=== PATIENT | female | born 2000 | race Caucasian/White ===

== ENCOUNTER 2020-12-10 20:53 | Emergency (ER) | payer OTHER, SELFPAY ==
--- NOTE | ~2020-12-10 | XR_ITS ---
EXAMINATION: XR knee LT 2V DATE: 12/10/2020 21:55 INDICATION: Generalized left knee pain post fall TECHNIQUE: AP and lateral views of the left knee were obtained. COMPARISON: None. FINDINGS: Alignment is normal. No fracture. Joint spaces appear normal. No left knee joint effusion. Soft tissu es are unremarkable. No radiopaque foreign bodies identified. IMPRESSION: Negative left knee radiographs. Reviewed, dictated and finalized at location A.
--- NOTE | ~2020-12-10 | XR_ITS ---
EXAMINATION: XR ankle RT 2V DATE: 12/10/2020 21:55 INDICATION: Lateral malleolar pain and swelling post fall TECHNIQUE: Anteroposterior and lateral views of the right ankle were obtained. COMPARISON: None. FINDINGS: Alignment is normal. No fracture. Joint spaces are normal. Small plantar calcaneal spur. Soft tissue swelling about the lateral malleolus. IMPRESSION: 1. No osseous abnormality. Reviewed, dictated and finalized at location A. IMPRESSION: 1. No osseous abnormality.
[2020-12-10 21:31] VITALS: BP 119/59; PULSE 93; RESP 14; TEMP 36.8; O2SAT 100
[2020-12-10 23:54] VITALS: BP 112/61; PULSE 87; RESP 17; O2SAT 100
[2020-12-10 23:57] VITALS: BP 112/61; PULSE 87; RESP 18; O2SAT 100
--- NOTE | 2020-12-11 00:20 | ED.FALL ---
HPI - Fall General Chief Complaint: Fall Stated Complaint: fall, knee and ankle pain Time Seen by Provider: 12/11/20 00:12 Source: patient Mode of arrival: ambulatory Limitations: no limitations History of Present Illness HPI Narrative: Patient is 25 weeks , 1, para 0, 0 tripped and fell while walking, went down to her knees then hit her abdomen on the floor. No loss of consciousness, complaining of left knee, right ankle and abdominal pain. Patient denies any vaginal bleeding at this time. Related Data Allergies Allergy/AdvReac Type Severity Reaction Status Date / Time No Known Allergies Allergy Verified 12/11/20 00:16 Review of Systems Review of Systems: CONSTITUTIONAL: Denies fever, chills, or sweats. EYES: Denies visual changes, redness, or discharge. ENT: Denies rhinorrhea, congestion, sore throat, or otalgia. CARDIOVASCULAR: Denies chest pain, palpitations, or edema. RESPIRATORY: Denies cough or dyspnea. GASTROINTESTINAL: Denies abdominal pain, nausea, vomiting, or diarrhea. GENITOURINARY: Denies dysuria or hematuria. SKIN: Denies rash or itching. MUSCULOSKELETAL: Denies back pain, joint pain, or myalgia. NEUROLOGIC: Denies headache, numbness, or weakness. PSYCHIATRIC: Denies anxiety or depression. Exam Narrative: General appearance: Well-developed, well-nourished Skin: Normal color Head: Normocephalic, nontraumatic Eyes: Clear conjunctiva ENT: Oropharynx normal, ears normal, nose normal Neck: Supple, nontender Chest and respiratory: Airway patent, no respiratory distress, no accessory muscle use Heart: Regular rate/rhythm Abdomen: Soft, nontender, no organomegaly, quiet bowel sounds Vascular: Normal peripheral pulses, normal capillary refill. Musculoskeletal: Left knee showed abrasion and bruises anteriorly, slight limited range of motion. Right ankle showed lateral bruises and swelling, no deformity Neurologic: Alert and oriented ?3, SENIOR QUALITY ASSURANCE ENGINEER is normal as tested, no gross motor deficit Course Course Emergency Course: Stable Vital Signs Vital signs: Vital Signs Temperature 36.8 C 12/10/20 21:31 Pulse Rate 93 12/10/20 21:31 Respiratory Rate 14 12/10/20 21:31 Blood Pressure 119/59 L 12/10/20 21:31 Pulse Oximetry 100 09/22/21 21:31 Temperature 36.8 C 12/10/20 21:31 Pulse Rate 80 12/11/20 01:09 Respiratory Rate 15 12/11/20 01:09 Blood Pressure 112/63 12/11/20 01:09 Pulse Oximetry 100 12/11/20 01:09 MDM - Fall MDM Narrative Medical decision making narrative: Today. Patient also patient had a fall, with blunt abdominal trauma, DI[employer]CTION[employer] SUR[employer]Y DRAF[employer] monitoring is recommended. X-ray of the left knee and right ankle showed no acute abnormality. heart tone within normal limits. Imaging Data Radiologist's impression: Impressions Ankle X-Ray 12/10/20 22:09 IMPRESSION: 1. No osseous abnormality. Knee X-Ray 12/10/20 22:10 IMPRESSION: Negative left knee radiographs. Critical Care Time Critical Care Time Critical Care Time: Yes Total Critical Care Time: 30 Discharge Plan Discharge Clinical Impression: Blunt trauma to abdomen Qualifiers: Encounter type: initial encounter Qualified Code(s): S39.91XA - Unspecified injury of abdomen, initial encounter Qualifiers: Weeks of gestation: 25 weeks Qualified Code(s): Z3A.25 - 25 weeks gestation of Patient Disposition: Still a Patient Condition: Stable Instructions: Blunt Abdominal Injury (ED), at 23 to 26 Weeks (ED) Additional Instructions: Patient is clear from our point of view after ED evaluation. Patient need to go to DIRECTIONAL SURVEY DRAFTER for monitoring. Follow-up/Referrals: [place]
[2020-12-11 01:09] VITALS: BP 112/63; PULSE 80; RESP 15; O2SAT 100
== END 2020-12-11 01:46 | disposition home or self-care (01) ==
PROVIDERS: Emergency Provider Emergency Medicine
DX: O9A.212 Injury, poisoning and certain other consequences of external causes complicating pregnancy, second trimester (principal); S39.91XA Unspecified injury of abdomen, initial encounter; S80.02XA Contusion of left knee, initial encounter; S90.01XA Contusion of right ankle, initial encounter; Z3A.25 25 weeks gestation of pregnancy; W01.0XXA Fall on same level from slipping, tripping and stumbling without subsequent striking against object, initial encounter
CPT/HCPCS: 73560; 73600; 99284

== ENCOUNTER 2020-12-11 01:45 | Observation (INO) | payer OTHER, SELFPAY ==
[2020-12-11 03:07] VITALS: BMI 39.4
--- NOTE | 2020-12-11 03:08 | OBADM ---
This patient, Sunita Fan, admitted to the OB room OB Post 116 for observation. Patient/family oriented to hospital policies and general routines including ID bracelet, bed and alarms, visiting hours, pain management, procedures, bathroom and other care routines, personal items, smoking policy, room service/diet, and visiting hours. Patient/Family are encouraged to report perceived risks to care and to ask questions if they do not understand what they are told or what they should do.
--- NOTE | 2020-12-14 04:30 | PM.OBTRLD ---
OB - Triage/Final Diagnosis Visit Information Comments/Additional reasons for admission: I have assessed the risk for this patient, Sunita Fan, and determined that she would benefit from observation care. Final Diagnosis (1) Abdominal pain affecting : Code(s): O26.899 - Other specified related conditions, unspecified trimester; R10.9 - Unspecified abdominal pain Status: Acute
== END 2020-12-11 02:58 | disposition home or self-care (01) ==
PROVIDERS: Admitting Provider Obstetrics & Gynecology; Visit Provider Obstetrics & Gynecology
DX: O26.892 Other specified pregnancy related conditions, second trimester (principal); R10.9 Unspecified abdominal pain; Z3A.25 25 weeks gestation of pregnancy
CPT/HCPCS: G0378; G0379

== ENCOUNTER 2021-01-16 10:20 | Emergency (ER) | payer OTHER, SELFPAY ==
[2021-01-16 10:28] VITALS: BP 135/74; PULSE 107; RESP 20; TEMP 36.9; O2SAT 100
--- NOTE | 2021-01-16 12:23 | PC.NURSE ---
Pt states she betancur been experiencing sore throat early this morning and it hurts to swallow, pt states has had swollen tonsils since April but she is and has to wait on intervention 10/28 pain
[2021-01-16 13:56] LABS: Monoscreen Negative (Negative); Negative Monotest Control Negative (Negative); Positive Monotest Control Positive (Positive)
--- NOTE | 2021-01-16 14:02 | ED.URI ---
HPI - URI/Sore Throat General Chief Complaint: Upper Respiratory Infection Stated Complaint: sore throat, swollen throat Time Seen by Provider: 01/16/21 12:13 Source: patient and family Mode of arrival: ambulatory Limitations: no limitations History of Present Illness HPI Narrative: 20-year-old female Patient states she has been having sore throats frequently since April However she says she was encouraged to delay evaluation because she was She now has a 1 day history of sore throat and discomfort with swallowing She does not have a fever, she does not have a cough, she does not have a exudate that she knows of, and she does not have any swelling or stiffness in her neck Related Data Allergies Allergy/AdvReac Type Severity Reaction Status Date / Time No Known Allergies Allergy Verified 01/16/21 10:32 Review of Systems Review of Systems: All systems reviewed & are unremarkable except as noted in HPI and below Constitutional: Constitutional: Reports no additional constitutional complaints, Denies chills, Denies fever(s) and Denies headache(s) Eyes: Eyes: Reports no additional eye complaints and Denies change in vision ENT: Reports dysphagia, Denies headache(s), Denies nasal congestion and Reports sore throat Cardiovascular: Cardiovascular: Denies chest pain and Denies dyspnea Respiratory: Respiratory: Denies cough and Denies dyspnea Gastrointestinal: Gastrointestinal: Denies nausea and Denies vomiting Genitourinary: Genitourinary: Denies urinary frequency Musculoskeletal: Musculoskeletal: Denies myalgias, Denies deformity and Denies numbness Integumentary/Breasts: Skin/Breast: Denies rash and Denies wounds Neurologic: Denies headache(s), Denies focal weakness and Denies numbness Psychiatric: Psychiatric: Reports no additional psychiatric complaints Endocrine: Endocrine: Reports no additional endocrine complaints Hematologic/Lymphatic: Hematologic/Lymphatic: Reports no additional hematologic/lymphatic complaints Allergic/Immunologic: Allergic/Immunologic: Reports no additional allergic/immunologic complaints Exam Const: General: cooperative and no acute distress Orientation/consciousness: patient oriented x3 (alert) HENMT: Head: normal to inspection, normocephalic and atraumatic Ears: external ears normal General nose exam: no epistaxis Other: Tonsils are slightly enlarged, not really erythematous, no exudate, and no shift or signs of peritonsillar abscess There is a little erythema of the tip of the uvula No cervical adenopathy Eyes: Conjunctivae: conjunctivae normal EOM: EOMs intact bilaterally Neck: Neck: normal visual inspection, no lymphadenopathy, supple and no JVD Resp: Effort & Inspection: normal respiratory effort Auscultation: clear to auscultation bilaterally, no rales, no rhonchi, no wheezes and other (BS =) Skin: General skin exam: normal color and no rashes or lesions noted Rashes: no rashes Neuro: General: patient oriented x3 (alert) and moves all extremities Speech: normal speech Psych: Affect: normal affect Course Course Emergency Course: Discussed results and plan with patient, that she likely has viral pharyngitis and may not be a candidate for tonsillectomy but could certainly discuss that with ENT Vital Signs Vital signs: Vital Signs Temperature 36.9 C 01/16/21 10:28 Pulse Rate 107 H 01/16/21 10:28 Respiratory Rate 20 01/16/21 10:28 Blood Pressure 135/74 01/16/21 10:28 Pulse Oximetry 100 01/16/21 10:28 Temperature 36.9 C 01/16/21 10:28 Pulse Rate 107 H 01/16/21 10:28 Respiratory Rate 20 01/16/21 10:28 Blood Pressure 135/74 01/16/21 10:28 Pulse Oximetry 100 01/16/21 10:28 MDM - URI/Sore Throat Lab Data Labs: Lab Results 01/16/21 Range/Units 12:23 Monoscreen Negative (Negative) Strep Screen Presumptive Negative *(Reference Range: Negative)*
[2021-01-16 14:28] VITALS: BP 135/86; PULSE 85; RESP 18; TEMP 36.8; O2SAT 99
== END 2021-01-16 14:29 | disposition home or self-care (01) ==
PROVIDERS: Emergency Provider Emergency Medicine
DX: J02.9 Acute pharyngitis, unspecified (principal)
CPT/HCPCS: 36415; 86308; 87081; 87880; 99283

== ENCOUNTER 2021-03-08 23:48 | Observation (INO) | payer OTHER, SELFPAY ==
--- NOTE | 2021-03-08 23:48 | OBADM ---
This patient, Sunita Fan, admitted to the OB room Labor/Delivery/Recovery 105 for observation. Patient/family oriented to hospital policies and general routines including ID bracelet, bed and alarms, visiting hours, pain management, procedures, bathroom and other care routines, personal items, smoking policy, room service/diet, and visiting hours. Patient/Family are encouraged to report perceived risks to care and to ask questions if they do not understand what they are told or what they should do.
[2021-03-09 00:11] VITALS: RESP 18; TEMP 36.9
[2021-03-09 00:12] VITALS: BP 103/41; PULSE 91
[2021-03-09 01:28] VITALS: BMI 49.6
--- NOTE | 2021-03-11 11:55 | PM.OBTRLD ---
OB - Triage/Final Diagnosis Visit Information Reason for evaluation: threatened labor Comments/Additional reasons for admission: I have assessed the risk for this patient, Sunita Fan, and determined that she would benefit from observation care.
== END 2021-03-09 01:35 | disposition home or self-care (01) ==
PROVIDERS: Admitting Provider Obstetrics & Gynecology; Visit Provider Obstetrics & Gynecology
DX: O47.1 False labor at or after 37 completed weeks of gestation (principal); Z3A.38 38 weeks gestation of pregnancy
CPT/HCPCS: G0378; G0379

== ENCOUNTER 2021-03-11 12:10 | Outpatient (RCR) | payer OTHER, SELFPAY ==
[2021-02-03 12:20] VITALS: BP 112/49; PULSE 99
[2021-02-11 12:48] VITALS: BP 123/67
[2021-02-17 12:58] VITALS: BP 104/46; PULSE 114
[2021-02-26 12:25] VITALS: BP 121/65; PULSE 116
[2021-03-03 13:48] VITALS: BP 110/63; PULSE 951
[2021-03-04 17:29] VITALS: BP 106/48; PULSE 90
--- NOTE | ~2021-03-11 | US_ITS ---
EXAMINATION: US OB BPP wo non-stress DATE: 03/03/2021 13:11 INDICATION: cardiac decelerations on in office exam during third trimester of . TECHNIQUE: Real-time pelvic ultrasound was performed. The interpreting radiologist was not present fo r the study. COMPARISON: None. FINDINGS: There is a single living fetus in vertex presentation. The placenta is posterior. heart rate i s 150 beats per minute (bpm). Biophysical profile performed by the technologist: breathing (30 sec sustained breathing in 30 minutes): 2 out of 2 movement (3 gross body movements in 30 minutes): 2 out of 2 tone (one episode of yvcowfs-aolihtkgl-amlgicr limb movement): 2 out of 2 Amniotic fluid pocket (2 cm): 2 out of 2 Total score: 8 out of 8 IMPRESSION: 1. Single living fetus in vertex presentation with heart rate of 150 bpm. 2. Biophysical profile 8 out of 8. Reviewed, dictated and finalized at location A. T WRAPPER
[2021-03-11 12:36] VITALS: BP 123/70; PULSE 98
== END 2021-04-02 09:50 | disposition home or self-care (01) ==
LOC: ANHOBOP 12:10
PROVIDERS: Visit Provider Obstetrics & Gynecology
DX: O26.03 Excessive weight gain in pregnancy, third trimester (principal); O36.63X0 Maternal care for excessive fetal growth, third trimester, not applicable or unspecified; Z3A.32 32 weeks gestation of pregnancy; Z3A.34 34 weeks gestation of pregnancy; Z3A.36 36 weeks gestation of pregnancy; Z3A.37 37 weeks gestation of pregnancy; Z3A.38 38 weeks gestation of pregnancy
CPT/HCPCS: 59025; 76819

== ENCOUNTER 2021-03-15 15:59 | Inpatient (IN) | payer OTHER, SELFPAY ==
[2021-03-15] VITALS (15 sets, daily range): BP systolic 86–122; BP diastolic 46–71; PULSE 73–99; TEMP 36.6; BMI 49.6
--- NOTE | 2021-03-15 16:25 | LDADM ---
This patient, Sunita Fan, was admitted to Labor/Delivery/Recovery 103 on 03/15/21 at 15:59. Plans for labor, pain management and were discussed with patient. Patient/family oriented to hospital policies and general routines including ID bracelet, bed and alarms, visiting hours, pain management, procedures, bathroom and other care routines, personal items, smoking policy, room service/diet and guest tray routines, security routines, and visiting hours. Patient/Family are encouraged to report perceived risks to care and to ask questions if they do not understand what they are told or what they should do. See OBIX for further documentation.
[2021-03-15 16:54] LABS: Basophils Percent Auto 0.2 % (0.2-1.2); Eosinophils Absolute Auto 0.1 K/mm3 (0-0.3); Eosinophils Percent Auto 0.7 % (0-4.4); Hematocrit 31.2 % (37.0-47.0); Hemoglobin 10.7 g/dL (12.0-15.0); Immature Granulocyte Absolute 0.05 K/mm3 (0.00-0.031); Immature Granulocyte Percent A 0.5 % (0-0.5); Lymphocytes Absolute Auto 1.38 K/mm3 (0.9-3.2); Lymphocytes Percent Auto 14.1 % (18.3-44.2); Mean Corpuscular HGB Conc 34.3 g/dl (32-36); Mean Corpuscular Hemoglobin 29.2 pg (26-34); Mean Platelet Volume 9.5 fl (7.4-10.4); Monocytes Absolute Auto 0.8 K/mm3 (0.1-0.6); Monocytes Percent Auto 8.2 % (2.6-8.5); Neutrophils Absolute Auto 7.5 K/mm3 (1.3-6.7); Neutrophils Percent Auto 76.3 % (45.5-73.1); Platelet Count Result 248 k/mm3 (150-375); Red Blood Count 3.67 M/mm3 (4.2-5.4); Red Cell Distribution Width 13.7 % (11.5-14.5); White Blood Count 9.8 K/mm3 (4.5-10.0)
[2021-03-15] MEDS: DINOPROSTONE 10 MG VAG INSERT VAGINAL (17:11)
--- NOTE | 2021-03-15 17:18 | PM.IMHP ---
H&P: HPI History of Present Illness Date/Time: 03/15/21 17:18 Sunita is a 21yo @ 39.0wks (ANDIE [birth year]) who presents for elective induction of labor. She reports good movement. She has been having irregular contractions. No VB or LOF. She has had regular care and underwent testing. Her is complicated by: - Morbid obesity - Rh negative s/p rhogam - Mild anemia on iron - Varaicella, CMV, & parvo non-immune Chief Complaint: induction of labor Review of Systems Review of Systems: All systems reviewed & are unremarkable except as noted in HPI and below (HPI) [facility] Family History Family History Sibling Mental disability Grandparent Metastatic adenocarcinoma Grandparent Heart disease Mother Cervical cancer Social History Social History Smoking status: Never smoker Substance use: never Spiritual care concerns: No Meds Home Medications and Allergies Home Medications Medication Instructions Recorded Confirmed Type PNV cmb#95-ferrous fumarate-FA 1 tablet PO DAILY 02/26/21 03/15/21 History [] Allergies Allergy/AdvReac Type Severity Reaction Status Date / Time No Known Allergies Allergy Verified 01/16/21 10:32 Vital Signs Vital Signs - 24 hr 03/15/21 16:31 03/15/21 16:46 03/15/21 17:01 Pulse Rate 97 91 92 Blood Pressure 118/69 119/59 L 111/59 L 03/15/21 17:16 Pulse Rate 91 Blood Pressure 107/62 Exam Const: General: cooperative, comfortable and no acute distress Nutritional Appearance: obese Resp: Effort & Inspection: normal respiratory effort Cardio: Rate: regular rate GI: Inspection: normal to inspection and non-distended GI Palp: No abdominal tenderness and Yes Soft to palpation : Other: FHT's: 130's/ mod soo/ + accels/ no decels - cat 1 TOCO: irregular ctx's Cervix: 2/50/-2, anterior & soft Membranes: intact Presentation: cephalic Skin: General skin exam: normal color Neuro: General: patient oriented x3 Extrem: General: normal to inspection Psych: Appearance: grossly normal Affect: normal affect Attitude: cooperative H&P: Results Labs Labs: Short CBC 03/15/21 Range/Units 16:45 WBC 9.8 (4.5-10.0) K/mm3 Hgb 10.7 L (12.0-15.0) g/dL Hct 31.2 L (37.0-47.0) % Plt Count 248 (150-375) k/mm3 Assessment and Plan Assessment and plan (1) : Qualifiers: Weeks of gestation: 39 weeks Qualified Code(s): Z3A.39 - 39 weeks gestation of Code(s): Z34.90 - Encounter for supervision of normal , unspecified, unspecified trimester Status: Acute (2) Encounter for elective induction of labor: Code(s): Z34.90 - Encounter for supervision of normal , unspecified, unspecified trimester Status: Acute Additional Plan - Admitted for IOL overnight - Cervidil per protocol - Continuous monitoring; currently reassuring - Anesthesia consult PRN pain - GBS negative
--- NOTE | 2021-03-15 17:29 | WPDHPUPDATE1 ---
History and Physical Update Update Date/Time: 03/15/21 17:29 History and Physical has been reviewed, including an updated exam of the patient. There are NO changes in the patient's condition. Risks, benefits, and alternatives have been discussed and questions answered. Patient agrees to proceed with procedure.
[2021-03-16] VITALS (184 sets, daily range): BP systolic 82–132; BP diastolic 37–81; PULSE 16–119; RESP 16–20; TEMP 36.2–37.4; O2SAT 95–100
--- NOTE | 2021-03-16 01:55 | P.PNAN_ITS ---
Anes - Eval Pre Procedure Procedure: labor epidural Date/Time: 03/16/21 01:55 Surgeon: nuha Preop Diagnosis: pain during labor Pre Op Diagnosis: Induction of Labor Patient Data Age: 21 Gender: F Height: 1.57 m Weight: 123 kg Last Vital Signs Temp 36.6 C 03/15/21 23:31 Pulse 95 03/16/21 00:16 Resp 16 03/16/21 00:30 BP 100/44 L 03/16/21 00:16 Allergies Allergy/AdvReac Type Severity Reaction Status Date / Time No Known Allergies Allergy Verified 01/16/21 10:32 Home Medications Medication Instructions Recorded Confirmed Type PNV cmb#95-ferrous fumarate-FA 1 tablet PO DAILY 02/26/21 03/15/21 History [] Laboratory Tests 03/15/21 03/15/21 03/15/21 16:45 16:45 16:45 WBC 9.8 K/mm3 K/mm3 (4.5-10.0) RBC 3.67 M/mm3 L M/mm3 (4.2-5.4) Hgb 10.7 g/dL L g/dL (12.0-15.0) Hct 31.2 % L % (37.0-47.0) MCV 85.0 fl fl (80-100) MCH 29.2 pg pg (26-34) MCHC 34.3 g/dl g/dl (32-36) RDW 13.7 % % (11.5-14.5) Plt Count 248 k/mm3 k/mm3 (150-375) MPV 9.5 fl fl (7.4-10.4) Immature Gran % (Auto) 0.5 % % (0-0.5) Neut % (Auto) 76.3 % H % (45.5-73.1) Lymph % (Auto) 14.1 % L % (18.3-44.2) [place] % (Auto) 8.2 % % (2.6-8.5) Eos % (Auto) 0.7 % % (0-4.4) Baso % (Auto) 0.2 % % (0.2-1.2) Lymph # (Auto) 1.38 K/mm3 K/mm3 (0.9-3.2) [place] # (Auto) 0.8 K/mm3 H K/mm3 (0.1-0.6) Eos # (Auto) 0.1 K/mm3 K/mm3 (0-0.3) Baso # (Auto) 0.0 K/mm3 K/mm3 (0.0-0.1) Abs Immat Gran (auto) 0.05 K/mm3 H K/mm3 (0.00-0.031) Absolute Neuts (auto) 7.5 K/mm3 H K/mm3 (1.3-6.7) Absolute Nucleated RBC 0.0 K/mm3 K/mm3 (0.0-0.012) Nucleated RBC % 0.0 % % (0.0-0.2) RPR Pending Blood Type A Negative Antibody Screen Negative Patient hx anesthesia problems: none Family hx anesthesia problems: none Results Review: All pre-operative results and documents have been reviewed as part of the pre-operative evaluation. [facility] Past Medical History Medical History (Updated 03/16/21 @ 01:56 by Kae Heller CRNA) Morbid obesity with BMI of 45.0-49.9, adult Family History Family History Sibling Mental disability Grandparent Metastatic adenocarcinoma Grandparent Heart disease Mother Cervical cancer Social History Social History Smoking status: Never smoker Substance use: never Spiritual care concerns: No Exam Day of Procedure 03/16/21 01:55
--- NOTE | 2021-03-16 06:12 | PM.OBPNLAB ---
Pain Control Date/time seen: 03/16/21 06:12 Pain control: tolerating well Pelvic Exam Dilation (cm): 2 Effacement (%): 80 station: -2 Amniotic membrane status: Ruptured (AROM, clear 0610) Contractions Monitor mode: External Contraction frequency: 3 Status status: Category l Assessment and Plan Assessment: induction ongoing Plan: continuous present management Comments: - start pitocin
[2021-03-16] MEDS: LACTATED RINGERS 1,000 ML 125 ML IV CONT ×2 (06:50→09:11)
[2021-03-16] MEDS: OXYTOCIN 30 UNITS/NS 500 ML 30 UNITS/500 ML BAG 4 UNITS IV CONT (06:55)
[2021-03-16] MEDS: fentaNYL CITRATE INJ (*CRX) 100 MCG/2 ML VIAL 50 MCG IV PUSH (07:14)
[2021-03-16] MEDS: ONDANSETRON INJ 4 MG/2 ML VIAL IV PUSH (07:58)
[2021-03-16 11:21] LABS: Rapid Plasma Reagin Non-Reactive (NonReactive)
--- NOTE | 2021-03-16 12:39 | PM.OBPNLAB ---
Pain Control Date/time seen: 03/16/21 12:39 Pain control: epidural Pelvic Exam Dilation (cm): 5 (.5) Effacement (%): 90 station: -2 Amniotic membrane status: Ruptured (AROM, clear 0610) Contractions Monitor mode: External Contraction frequency: 1 (-3) Contraction pattern: Regular Status status: Category l Assessment and Plan Pitocin rate (mU/min): 18 Assessment: induction ongoing Plan: continuous present management
--- NOTE | 2021-03-16 16:44 | PM.OBPNLAB ---
Pain Control Date/time seen: 03/16/21 16:44 Pain control: tolerating well and epidural Pelvic Exam Dilation (cm): 10 (.5) Effacement (%): 100 station: 0 Amniotic membrane status: Ruptured (AROM, clear 0610) Contractions Monitor mode: External Contraction frequency: 2 Contraction pattern: Regular Status status: Category l Assessment and Plan Pitocin rate (mU/min): 14 Comments: - will sit up for 30-60 minutes then plan to push
--- NOTE | 2021-03-16 19:09 | PM.OBPRVD ---
OB - Delivery Note Procedure Delivery date: 03/16/21 events: Labor Induction Induction method: per cervidil protocol Delivery augmentation: rupture of membranes and pitocin Delivery monitor: external FHT and external uterine Route of delivery: Laceration Description: None Quantitative Blood Loss (ml): 305 Anesthesia type: Epidural Disposition: floor [place] [facility] Date of : 03/16/21 Time of : 18:56 Weeks of gestation at delivery: 39 (.1) gender: Male Weight (pounds): 7 Weight (ounces): 9 presentation: vertex position: Right Occiput Anterior Placenta delivery description: Expressed cord vessel description: 3 Vessels and Delayed Cord Clamping score one minute: 8 score five minutes: 9 Narrative: Sunita progressed to complete dilation and began pushing with good maternal effort. She pushed for approximately an hour and a half and delivered the head over intact perineum. No nuchal cord was palpated. The 's shoulders and body delivered without complications. The was immediately placed skin to skin and stimulated. He had good cry. His mouth and nose were bulb suctioned. Delayed cord clamping was performed. The umbilical cord was then clamped and cut. A segment of cord was collected for cord gases. The remaining cord blood was collected for typing. With Pitocin running and gentle downward traction on the cord, the placenta delivered without complications. Fundus was found to be firm with minimal bleeding. The patient was examined and no lacerations were noted. Fundus remained firm with minimal bleeding. The sponge, lap, instrument, and needle counts were correct at the end of the procedure. Mom and baby were left bonding in the birthing suite in stable condition.
[2021-03-16] MEDS: OXYTOCIN 30 UNITS/NS 500 ML 30 UNITS/500 ML BAG 125 UNITS IV CONT (19:30)
[2021-03-16] MEDS: IBUPROFEN 600 MG TABLET PO (20:54)
--- NOTE | 2021-03-17 01:21 | PC.NURSE ---
03/17/2021 Patient transferred to post room #283. Support person present. Oriented to unit, room, information board, rooming in, admission packet and security measures. Patient verbalizes understanding.
[2021-03-17 03:15] VITALS: BP 108/61; PULSE 89; RESP 18; TEMP 36.1; O2SAT 99
[2021-03-17 05:20] LABS: Hematocrit 30.8 % (37.0-47.0); Hemoglobin 10.4 g/dL (12.0-15.0)
[2021-03-17 08:15] VITALS: BP 114/71; PULSE 82; RESP 18; TEMP 36.4; O2SAT 99
[2021-03-17] MEDS: MULTIVIT/MIN/PREN/FOL AC/IRON TABLET 1 TAB PO (08:52)
[2021-03-17] MEDS: IBUPROFEN 600 MG TABLET PO ×2 (08:53→17:37)
--- NOTE | 2021-03-17 09:00 | PC.NURSE ---
Mother reports she wishes to bottle feed only.
--- NOTE | 2021-03-17 12:47 | WPDANLDPN2 ---
Anes-Prog Note L&D Date/Time: 03/17/21 12:47 Comfortable throughout: labor and delivery Neuraxial method: epidural Epidural/Spinal procedure site: clean & non-tender Neuro status: Neuro function grossly intact. Cardiovascular status: normal Airway patency: baseline Mental status: baseline Post-Op hydration status: normal Vital Signs: Last Vital Signs Temp 97.5 F L 03/17/21 08:15 Pulse 82 03/17/21 08:15 Resp 18 03/17/21 08:15 BP 114/71 03/17/21 08:15 Pulse Ox 99 03/17/21 08:15 Pain score (VAS): 0 I/O: Intake & Output 03/16/21 03/17/21 03/17/21 23:59 07:59 15:59 Intake Total 500 Output Total 600 Balance -100 Patient feedback: Patient satisfied with anesthetic care.
[2021-03-17 12:50] VITALS: BP 95/60; PULSE 83; RESP 18; TEMP 36.8; O2SAT 99
--- NOTE | 2021-03-17 12:50 | PM.OBPNVD ---
OB - PN: Subj Subjective Date/time seen: 03/17/21 12:27 Narrative: PPD#1 Bailee reports doing well today. 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 Her pain is controlled. She is tolerating regular diet, voiding, passing gas, and ambulating without issues. She is breast feeding. She would like her son circumcised. She would like to go home tomorrow. OB - PN: Obj Data Labs CBC & Chem 7: 03/17/21 04:30 Labs: Laboratory Results - last 24 hr 03/17/21 04:30 Hgb 10.4 L Hct 30.8 L OB - PN A/P Assessment and Plan (1) Normal vaginal delivery of first : Code(s): O80 - Encounter for full-term uncomplicated delivery Status: Acute Plan Plan: routine care and discharge home (tomorrow) Comments: - Pelvic rest; take meds as prescribed - ER return precautions: fever, n/v/abd pain, bleeding, HTN Time Spent With Patient Time: Total time spent is greater than 50% in coordination of care (as documented) at patient's floor/unit and/or counseling patient: Review of Systems Constitutional: Constitutional: Denies chills and Denies fever(s) Eyes: Eyes: Denies change in vision ENT: Denies dizziness Cardiovascular: Cardiovascular: Denies chest pain, Denies palpitations and Denies dyspnea Respiratory: Respiratory: Denies cough and Denies dyspnea Gastrointestinal: Gastrointestinal: Denies nausea and Denies vomiting Neurologic: Denies dizziness Endocrine: Endocrine: Denies palpitations Exam Const: General: cooperative, comfortable and no acute distress Nutritional Appearance: obese Orientation/consciousness: patient oriented x3 Resp: Effort & Inspection: normal respiratory effort Auscultation: clear to auscultation bilaterally Cardio: Rate: regular rate GI: Inspection: non-distended GI Palp: No abdominal tenderness and Yes Soft to palpation Auscultation: normal bowel sounds : Other: fundus firm Skin: General skin exam: normal color Neuro: General: patient oriented x3 Extrem: General: normal to inspection Psych: Appearance: grossly normal Affect: normal affect Attitude: cooperative
[2021-03-17 16:15] VITALS: BP 116/68; PULSE 98; RESP 16; TEMP 36.8; O2SAT 100
[2021-03-17] MEDS: ACETAMINOPHEN 325 MG TABLET 650 MG PO (20:05)
[2021-03-17 20:30] VITALS: BP 129/77; PULSE 87; PULSE 97; RESP 16; TEMP 36.3; O2SAT 100
[2021-03-18] MEDS: IBUPROFEN 600 MG TABLET PO (05:17)
--- NOTE | 2021-03-18 07:30 | PC.NURSE ---
PT introductions made and plan of care discussed per post , pain management, bottle feeding, daily care activities and pending discharge to home. PT and fob both recipients of such instructions and no barriers to learning identified at this time. Pt received such instructions per one to one discussion, mom baby care guide and demonstrations. PT verbalized understanding of such care.
[2021-03-18 08:00] VITALS: BP 105/63; PULSE 86; RESP 18; TEMP 36.4; O2SAT 100
[2021-03-18 10:10] VITALS: PULSE 86; RESP 18; O2SAT 100
[2021-03-18] MEDS: DOCUSATE SODIUM 100 MG CAPSULE PO (10:10)
[2021-03-18] MEDS: ACETAMINOPHEN 325 MG TABLET 650 MG PO (10:10)
--- NOTE | 2021-03-18 11:00 | PC.NURSE ---
Patient viewed the discharge video Mother & Baby Care, The First Two Weeks . Patient was given the opportunity and encouraged to ask questions. Patient verbalized understanding of information shared and has been given the mother/baby guide for home reference. PT received discharge instructions per protocol and verbalized understanding of such instructions.
--- NOTE | 2021-03-18 11:52 | PC.NURSE ---
PT discharged to home ambulatory accompanied by fob and infant and taken to waiting car. Follow up appts confirmed
[2021-03-19 10:43] VITALS: BP 103/49; PULSE 86; RESP 20; TEMP 37; O2SAT 100
--- NOTE | 2021-03-25 15:20 | PM.OBDSVD ---
DS: Admitting Diagnosis Discharge Date 03/18/21 Admitting Diagnosis induction of labor DS: Discharge Diagnosis Discharge Diagnosis (1) Normal vaginal delivery of first : Code(s): O80 - Encounter for full-term uncomplicated delivery Status: Acute OB - DS: Summary OB Procedures : NST and Ultrasound OB Procedures Intrapartum: Spontaneous Vag Delivery OB Procedures: : None Peripartum Data Infant Delivery Method: Natural Vaginal Laceration Description: None complications: none 1: Gender: Male Disposition of : home Status at Discharge Functional status at discharge: independent ambulation Overall status at discharge: patient is back to baseline Time Spent with Patient Time attestation: Total time spent providing and/or coordinating discharge services: Exam Const: General: cooperative, comfortable and no acute distress Nutritional Appearance: obese Orientation/consciousness: patient oriented x3 Resp: Effort & Inspection: normal respiratory effort Auscultation: clear to auscultation bilaterally Cardio: Rate: regular rate GI: Inspection: non-distended GI Palp: No abdominal tenderness and Yes Soft to palpation Auscultation: normal bowel sounds : Other: fundus firm Skin: General skin exam: normal color Neuro: General: patient oriented x3 Extrem: General: normal to inspection Psych: Appearance: grossly normal Affect: normal affect Attitude: cooperative Discharge Plan Discharge Attending physician on discharge: Lisa Kovacs Discharging Clinician: Lisa Kovacs Anticipated Discharge Date/Time: 03/18/21 10:00 Patient Disposition: Home, Self-Care Activity: pelvic rest Diet: regular Discharge Instructions: Education: Mom and Baby Guide Given to: Mother Follow-Up: Call your delivering provider's office for an appointment to be seen in: 4 Weeks Mom and baby should come to the [facility] for the follow-up appointment. Appointment Date/Time: at What to expect at your follow-up visit: Blood Pressure Check Call [phone] if you are unable to keep your appointment time. BREAST CARE: * Wear a snug supportive bra. * For engorgement discomfort: Bottle Feeding: * May apply ice packs PERINEAL CARE: * Until bleeding stops, use your laquita bottle after urinating * Change your pad frequently throughout the day * You may take sitz baths several times a day (fill your bathtub with warm water and soak for 20 minutes.) Do NOT bathe in the water * No tub baths until seen by your physician - You may shower ACTIVITY: * Rest as much as possible. * Do not exercise or lift anything heavier than your baby (such as laundry or other children.) * Avoid stairs or driving as much as possible. * Do not put anything into the vagina. No douching, tampons, or sexual activity until seen by physician. NOTIFY PHYSICIAN IF YOU HAVE ANY QUESTIONS OR IF ANY OF THE FOLLOWING SYMPTOMS OCCUR: * If your perineum becomes red, swollen, or more painful than what you have experienced in the hospital. * If your vaginal bleeding becomes foul smelling. * If your vaginal bleeding becomes more heavy than a period or if your bleeding changes from pink to bright red. However, you may pass an occasional walnut-sized clot once or twice for the first week . * If you experience a sharp, shooting pain in you calves. * If you discover a hard, reddened area on your breast or if you experience flu-like symptoms. * If you have a fever of 100.4 or greater DIET: * Eat regular, well-balanced meals. * Drink plenty of fluids daily. If , drink to thirst. Patient Instructions: Antibiotic Form Stand Alone Forms: General Discharge Information Follow-up/Referrals: Lisa Kovacs MD [Physician] - 4 Weeks Discharge Medications: New acetaminophen [Mapap (acetaminophen)] 3
== END 2021-03-18 11:52 | disposition home or self-care (01) | DRG 560 ==
LOC: ANHLDR 03-16 14:03 → ANHOB2 03-16 22:01
PROVIDERS: Admitting Provider Obstetrics & Gynecology; Visit Provider Obstetrics & Gynecology
DX: O99.02 Anemia complicating childbirth (principal); D64.9 Anemia, unspecified; O99.214 Obesity complicating childbirth; E66.01 Morbid (severe) obesity due to excess calories; Z3A.39 39 weeks gestation of pregnancy; Z37.0 Single live birth
CPT/HCPCS: 36415; 85014; 85018; 85025; 86592; 86850; 86900; 86901; A9270; J2405; J2590; J2795; J3010; J7120

== ENCOUNTER 2021-05-23 02:16 | Emergency (ER) | payer OTHER, SELFPAY ==
[2021-05-23 02:24] VITALS: BP 130/83; PULSE 72; RESP 17; TEMP 36.8; O2SAT 99
--- NOTE | 2021-05-23 02:36 | ED.FEMALEGU ---
HPI - Female Genitourinary General Chief complaint: Vaginal Bleeding Stated complaint: vaginal bleeding Time Seen by Provider: 05/23/21 02:21 Source: patient Mode of arrival: ambulatory Limitations: no limitations History of Present Illness HPI Narrative: Patient is a 21-year-old female who presents to the ED with complaints of vaginal bleeding. Patient is 2 months . She first developed vaginal bleeding last Tuesday, 05/16. She states the bleeding was light at first and has slowly become heavier. Yesterday she reports she was bleeding through 3-4 medium-sized pads an hour. She notified her SUPERVISING LIBRARIAN of this and was recommended to come to the ED for further evaluation. Patient also reports having nausea, lower abdominal cramping, and lower back pain. She took Tylenol for the pain with minimal relief. She notes her cycles were regular prior to her and she has not had a cycle since giving . She denies having any complications with her or . She is not breast-feeding. Patient also denies any lightheadedness, dizziness, fever, chills, vomiting, diarrhea, rectal bleeding, hematuria, dysuria. Patient was sexually active 2 days prior to when the bleeding began. She denies any concern for sexually transmitted diseases. Related Data Allergies Allergy/AdvReac Type Severity Reaction Status Date / Time No Known Allergies Allergy Verified 05/23/21 02:29 Review of Systems Review of Systems: CONSTITUTIONAL: Denies fever, chills, or sweats. CARDIOVASCULAR: Denies chest pain or edema. RESPIRATORY: Denies cough or dyspnea. GASTROINTESTINAL: Reports lower abdominal cramping, nausea. Denies vomiting, constipation, rectal bleeding, or diarrhea. GENITOURINARY: Reports vaginal bleeding. Denies dysuria or hematuria. MUSCULOSKELETAL: Reports lower back pain. Denies joint pain, or myalgia. NEUROLOGIC: Denies headache, numbness, lightheadedness, or weakness. All systems reviewed & are unremarkable except as noted in HPI and below PMFSH Past Medical History Medical History (Updated 05/23/21 @ 03:23 by Catarina Aguila PA-C) Morbid obesity with BMI of 45.0-49.9, adult Surgical History Surgical History (Updated 05/23/21 @ 02:38 by Catarina Aguila PA-C) No pertinent past surgical history Family History Family History Sibling Mental disability Grandparent Metastatic adenocarcinoma Grandparent Heart disease Mother Cervical cancer Social History Social History Smoking status: Never smoker Substance use: never Spiritual care concerns: No Exam Narrative: GENERAL: Well appearing, well-nourished, non-toxic, in no acute distress. HEAD: Normocephalic, atraumatic. RESPIRATORY: Airway patent, respirations nonlabored. Clear to auscultation bilaterally, no rales, rhonchi, wheezing. CARDIOVASCULAR: Regular rate and rhythm without murmurs, rubs, or gallops. ABDOMINAL: Soft, mild diffuse tenderness in lower abdomen, nondistended, no hepatosplenomegaly. Normoactive BS. MUSCULOSKELETAL: Moves all extremities. Strength/ROM intact without gross deformities or TTP. No edema. PELVIC: Exam performed with female college or university business manager. External genitalia unremarkable. No genital lesions. Speculum exam revealed dark red blood in vaginal vault. No significant clots present. Cervix slightly open with blood in os. No cervical motion tenderness. SKIN: Warm, dry, normal color. No rashes. NEURO: A&O X3. Speech clear. Cranial nerves II-XII grossly intact. Steady gait. No ataxic movements. PSYCHIATRIC: Appropriate mood and affect. Normal interaction. Course Vital Signs Vital signs: Vital Signs Temperature 98.2 F 05/23/21 02:24 Pulse Rate 72 05/23/21 02:24 Respiratory Rate 17 05/23/21 02:24 Blood Pressure 130/83 05/23/21 02:24 Pulse Oximetry 99 05/23/21 02:24 Temperature 98.2 F 05/23/21
[2021-05-23] MEDS: ONDANSETRON HCL ODT 4 MG TABLET PO (02:52)
[2021-05-23] MEDS: ACETAMINOPHEN 500 MG TABLET 1000 MG PO (02:52)
[2021-05-23 02:54] VITALS: BP 127/65; PULSE 69
[2021-05-23 02:54] LABS: Basophils Percent Auto 0.5 % (0.2-1.2); Eosinophils Absolute Auto 0.2 K/mm3 (0-0.3); Eosinophils Percent Auto 2.4 % (0-4.4); Hemoglobin 12.3 g/dL (12.0-15.0); Immature Granulocyte Absolute 0.02 K/mm3 (0.00-0.031); Immature Granulocyte Percent A 0.3 % (0-0.5); Lymphocytes Absolute Auto 2.96 K/mm3 (0.9-3.2); Lymphocytes Percent Auto 37.1 % (18.3-44.2); Mean Corpuscular HGB Conc 33.2 g/dl (32-36); Mean Corpuscular Hemoglobin 28.5 pg (26-34); Mean Corpuscular Volume 85.8 fl (80-100); Mean Platelet Volume 9.6 fl (7.4-10.4); Monocytes Absolute Auto 0.8 K/mm3 (0.1-0.6); Neutrophils Percent Auto 49.7 % (45.5-73.1); Platelet Count Result 270 k/mm3 (150-375); Red Blood Count 4.31 M/mm3 (4.2-5.4); Red Cell Distribution Width 12.8 % (11.5-14.5)
[2021-05-23 02:55] VITALS: BP 97/72; PULSE 84
[2021-05-23 02:57] VITALS: BP 114/74; PULSE 80
[2021-05-23 03:01] LABS: Add Urine Microscopic? YES; Appearance Urine Cloudy (Clear); Bilirubin Urine Negative (Negative); Blood Urine 2+ (Negative); Color Urine Amber (Yellow); Glucose Urine UA Negative (Negative); Ketones Urine Negative (Negative); Leukocyte Esterase Ur Trace LEU/UL (Negative); Nitrate Urine Negative (Negative); Protein Urine 2+ mg/dL (Negative); RBC Urine >75 /hpf (0-2); Specific Grav Ur 1.023 (1.001-1.035)
[2021-05-23 03:04] LABS: Acetaminophen < 10 ug/mL (10-30)
[2021-05-23 03:06] LABS: Anion Gap 8 mmol/L (8-16); Blood Urea Nitrogen 14 mg/dL (7-17); Calcium 9.1 mg/dL (8.4-10.2); Carbon Dioxide 25 mmol/L (22-30); Chloride 109 mmol/L (98-107); Estimated CRCL calculation 112 ml/min; Estimated Glomerular Filt Rate > 60; Glucose 90 mg/dL (65-110); Sodium 142 mmol/L (137-145)
[2021-05-23 03:43] VITALS: BP 120/66; PULSE 93; RESP 18; O2SAT 99
== END 2021-05-23 03:45 | disposition home or self-care (01) ==
PROVIDERS: Physician Assistant; Emergency Provider Emergency Medicine; PCP Internal Medicine Gastroenterology
DX: N93.8 Other specified abnormal uterine and vaginal bleeding (principal); E66.01 Morbid (severe) obesity due to excess calories; Z68.41 Body mass index [BMI] 40.0-44.9, adult
CPT/HCPCS: 36415; 80048; 80307; 81001; 81025; 85025; 99283; A9270

== ENCOUNTER 2021-07-17 21:01 | Emergency (ER) | payer OTHER, SELFPAY ==
[2021-07-17 21:06] VITALS: BP 130/78; PULSE 77; RESP 20; TEMP 36.3; O2SAT 100
--- NOTE | 2021-07-17 21:40 | ED.EAR ---
HPI - Ear Problem General Chief complaint: Ear Stated complaint: left ear pain Time Seen by Provider: 07/17/21 21:39 Source: patient Mode of arrival: ambulatory History of Present Illness HPI Narrative: 21-year-old female presents today with complaints of left ear pain and swelling to the left jaw that she noted today after she woke up from a nap with her son. Patient does states she has had an upper respiratory infection for the last few days. Patient with cough, runny nose, drainage down her throat, sore throat, and a fever on Tuesday but none since. Patient denies any dental issues but does state that she needs to get her wisdom teeth pulled. Patient able to eat and drink, denies difficulty swallowing, or shortness of breath. Related Data Allergies Allergy/AdvReac Type Severity Reaction Status Date / Time No Known Allergies Allergy Verified 07/17/21 21:09 Review of Systems Review of Systems: CONSTITUTIONAL: Denies fever, chills, or sweats. EYES: Denies visual changes, redness, or discharge. ENT: Left ear pain, left jaw swelling. Denies rhinorrhea, congestion, sore throat, or otalgia. CARDIOVASCULAR: Denies chest pain, palpitations, or edema. RESPIRATORY: Denies cough or dyspnea. GASTROINTESTINAL: Denies abdominal pain, nausea, vomiting, or diarrhea. GENITOURINARY: Denies dysuria or hematuria. SKIN: Denies rash or itching. MUSCULOSKELETAL: Denies back pain, joint pain, or myalgia. NEUROLOGIC: Denies headache, numbness, dizziness, or weakness. PSYCHIATRIC: Denies anxiety or depression. PMFSH Past Medical History Medical History Morbid obesity with BMI of 45.0-49.9, adult Surgical History Surgical History No pertinent past surgical history Family History Family History Sibling Mental disability Grandparent Metastatic adenocarcinoma Grandparent Heart disease Mother Cervical cancer Social History Social History Smoking status: Never smoker Substance use: never Spiritual care concerns: No Exam Narrative: GENERAL: Well-appearing, well-nourished, and in no acute distress. HEAD: Normocephalic, atraumatic. EYES: PERRLA and EOMI. ENT: Nares clear, no rhinorrhea or epistaxis. Mucous membranes moist. Oropharynx without tonsillar hypertrophy exudate or other lesions. Pharyngeal erythema. Bilateral TMs cloudy. Swelling noted to left TMJ area. Pain to tooth 17 and 18 on palpation. No erythema or swelling noted around gums. No dental decay, fractured tooth, or cavity noted. NECK: Supple. No adenopathy or masses. No carotid bruits or JVD CHEST: Clear to auscultation. No respiratory distress. No wheezes rales or rhonchi HEART: Regular rate and rhythm. No murmur heard. Normal peripheral pulses. ABDOMEN: Soft, nontender, nondistended, normal active bowel sounds. EXTREMITIES: Normal range of motion. No edema. SKIN: Warm, dry, no rash. NEURO: No focal deficits. Alert and oriented x3. PSYCH: Normal mood and affect. Course Vital Signs Vital signs: Vital Signs Temperature 36.3 C L 07/17/21 21:06 Pulse Rate 77 07/17/21 21:06 Respiratory Rate 20 07/17/21 21:06 Blood Pressure 130/78 07/17/21 21:06 Pulse Oximetry 100 07/17/21 21:06 Temperature 36.3 C L 07/17/21 21:06 Pulse Rate 82 07/17/21 22:36 Respiratory Rate 16 07/17/21 22:36 Blood Pressure 122/72 07/17/21 22:36 Pulse Oximetry 100 07/17/21 22:36 Medical Decision Making MDM Narrative Medical decision making narrative: HPI as noted. Differentials include acute otitis media, dental abscess, dental cavity, URI. Due to tenderness tooth 17 and 18 likely swelling related to dental issue. Will treat with Augmentin use Tylenol or ibuprofen as needed for pain. Follow-up with dentist as soon as poss
[2021-07-17] MEDS: AMOXICILLIN/CLAVULANATE K 875-125 MG TAB 1 TABLET PO (22:31)
[2021-07-17 22:36] VITALS: BP 122/72; PULSE 82; RESP 16; O2SAT 100
== END 2021-07-17 22:37 | disposition home or self-care (01) ==
LOC: ANHED 22:32
PROVIDERS: Emergency Provider Nurse Practitioner Family; PCP Internal Medicine Gastroenterology
DX: K08.89 Other specified disorders of teeth and supporting structures (principal); J06.9 Acute upper respiratory infection, unspecified; E66.01 Morbid (severe) obesity due to excess calories
CPT/HCPCS: 99283; A9270

== ENCOUNTER 2021-08-11 10:55 | Outpatient (CLI) | payer OTHER, SELFPAY ==
[2021-08-11 11:13] LABS: Basophils Percent Auto 0.6 % (0.2-1.2); Eosinophils Absolute Auto 0.2 K/mm3 (0-0.3); Eosinophils Percent Auto 3.3 % (0-4.4); Hematocrit 38.4 % (37.0-47.0); Hemoglobin 12.8 g/dL (12.0-15.0); Immature Granulocyte Absolute 0.01 K/mm3 (0.00-0.031); Immature Granulocyte Percent A 0.2 % (0-0.5); Lymphocytes Absolute Auto 1.91 K/mm3 (0.9-3.2); Mean Corpuscular HGB Conc 33.3 g/dl (32-36); Mean Corpuscular Hemoglobin 27.8 pg (26-34); Mean Corpuscular Volume 83.5 fl (80-100); Mean Platelet Volume 9.1 fl (7.4-10.4); Monocytes Absolute Auto 0.7 K/mm3 (0.1-0.6); Monocytes Percent Auto 10.6 % (2.6-8.5); Neutrophils Absolute Auto 3.7 K/mm3 (1.3-6.7); Neutrophils Percent Auto 56.3 % (45.5-73.1); Platelet Count Result 237 k/mm3 (150-375); Red Cell Distribution Width 13.2 % (11.5-14.5); White Blood Count 6.6 K/mm3 (4.5-10.0)
[2021-08-11 11:23] LABS: Hemoglobin A1C 4.7 % (<5.7)
[2021-08-11 11:27] LABS: Cholesterol 232 mg/dL (0-200); HDL Direct 37 mg/dL; Triglycerides 168 mg/dL (<150)
[2021-08-11 11:37] LABS: LDL Cholesterol Direct 143 mg/dL
[2021-08-11 11:44] LABS: Beta HCG Quantitative < 2.39 mIU/ML
[2021-08-14 06:19] LABS: FSH 3.8 mIU/mL (***); Progesterone 2.3 ng/mL (***); Prolactin 28.2 ng/mL (***)
[2021-08-14 13:09] LABS: DHEA-Sulfate 242 mcg/dL (18-391)
[2021-08-16 11:14] LABS: Testosterone Free 1.9 pg/mL (0.1-6.4); Testosterone Total 23 ng/dL (2-45)
[2021-08-18 01:43] LABS: Estradiol, Ultrasensitive 89 pg/mL
== END 2021-08-11 10:56 | disposition home or self-care (01) ==
LOC: ANHLAB 10:57
PROVIDERS: PCP Internal Medicine Gastroenterology; Visit Provider Obstetrics & Gynecology
DX: N92.6 Irregular menstruation, unspecified (principal); E66.01 Morbid (severe) obesity due to excess calories; Z68.42 Body mass index [BMI] 45.0-49.9, adult
CPT/HCPCS: 36415; 80061; 82627; 82670; 83001; 83036; 83498; 84144; 84146; 84402; 84403; 84702; 85025

== ENCOUNTER 2021-10-31 08:01 | Outpatient (RCR) | payer OTHER, SELFPAY ==
[2021-10-31] MEDS: RHO(D) IMMUNE GLOBULIN 300 MCG/2 ML SYRINGE IM (14:56)
== END 2021-10-31 08:30 | disposition home or self-care (01) ==
LOC: ANHOBOP 08:01
PROVIDERS: PCP Internal Medicine Gastroenterology; Visit Provider Obstetrics & Gynecology Gynecology
DX: Z29.13 Encounter for prophylactic Rho(D) immune globulin (principal); O36.0190 Maternal care for anti-D [Rh] antibodies, unspecified trimester, not applicable or unspecified; Z3A.00 Weeks of gestation of pregnancy not specified
CPT/HCPCS: 36415; 85461; 90384; 96372; J2790

== ENCOUNTER 2021-11-13 14:11 | Outpatient (CLI) | payer OTHER, SELFPAY ==
[2021-11-13 16:33] LABS: Basophils Percent Auto 0.1 % (0.2-1.2); Eosinophils Absolute Auto 0.1 K/mm3 (0-0.3); Hemoglobin 11.6 g/dL (12.0-15.0); Immature Granulocyte Absolute 0.01 K/mm3 (0.00-0.031); Immature Granulocyte Percent A 0.1 % (0-0.5); Lymphocytes Absolute Auto 1.42 K/mm3 (0.9-3.2); Lymphocytes Percent Auto 20.5 % (18.3-44.2); Mean Corpuscular HGB Conc 34.1 g/dl (32-36); Mean Corpuscular Hemoglobin 28.9 pg (26-34); Mean Corpuscular Volume 84.6 fl (80-100); Mean Platelet Volume 9.9 fl (7.4-10.4); Monocytes Absolute Auto 0.4 K/mm3 (0.1-0.6); Monocytes Percent Auto 6.2 % (2.6-8.5); Neutrophils Percent Auto 72.1 % (45.5-73.1); Platelet Count Result 221 k/mm3 (150-375); Red Blood Count 4.02 M/mm3 (4.2-5.4); White Blood Count 6.9 K/mm3 (4.5-10.0)
[2021-11-13 16:48] LABS: Glucose 1 Hour PP 50gm Dose 146 mg/dL
[2021-11-13 19:26] LABS: Hepatitis B Surface Antigen Negative (Negative); Rubella IgG Antibody 4.4 IU/ML
[2021-11-13 20:32] LABS: HIV 1/2 Ab P24 Ag Result Negative (Negative)
[2021-11-17 08:28] LABS: CMV IgG Antibody <0.60 U/mL (<0.60)
[2021-11-18 12:25] LABS: Varicella IgG Antibody <135.00 Index (>=165.00)
== END 2021-11-13 14:12 | disposition home or self-care (01) ==
LOC: ANHLAB 14:11
PROVIDERS: PCP Internal Medicine Gastroenterology; Visit Provider Obstetrics & Gynecology
DX: N94.89 Other specified conditions associated with female genital organs and menstrual cycle (principal)
CPT/HCPCS: 36415; 82947; 84702; 85025; 86644; 86703; 86747; 86762; 86787; 86850; 86880; 86900; 86901; 86902; 87086; 87340; G0432

== ENCOUNTER 2021-12-11 11:21 | Outpatient (CLI) | payer OTHER, SELFPAY ==
[2021-12-01 08:32] LABS: Glucose Fasting Gestational 93 mg/dL (>/=95)
[2021-12-11 12:12] LABS: Glucose Fasting Gestational 88 mg/dL (>/=95)
[2021-12-11 14:09] LABS: Glucose 1 Hour Gest 170 mg/dL (>/=180)
[2021-12-11 15:15] LABS: Glucose 2 Hour Gest 146 mg/dL (>/= 155)
[2021-12-11 16:01] LABS: Glucose 3 Hour Gest 122 mg/dL (>/=140)
== END 2021-12-11 11:22 | disposition home or self-care (01) ==
PROVIDERS: PCP Internal Medicine Gastroenterology; Visit Provider Obstetrics & Gynecology
DX: R73.09 Other abnormal glucose (principal)
CPT/HCPCS: 36415; 82951; 82952

== ENCOUNTER 2022-03-14 08:15 | Outpatient (RCR) | payer OTHER, SELFPAY ==
[2022-03-11 16:25] LABS: Basophils Percent Auto 0.1 % (0.2-1.2); Eosinophils Absolute Auto 0.1 K/mm3 (0-0.3); Eosinophils Percent Auto 0.7 % (0-4.4); Hematocrit 34.1 % (37.0-47.0); Hemoglobin 11.4 g/dL (12.0-15.0); Immature Granulocyte Absolute 0.02 K/mm3 (0.00-0.031); Immature Granulocyte Percent A 0.2 % (0-0.5); Lymphocytes Absolute Auto 1.26 K/mm3 (0.9-3.2); Lymphocytes Percent Auto 15.6 % (18.3-44.2); Mean Corpuscular HGB Conc 33.4 g/dl (32-36); Mean Corpuscular Hemoglobin 29.5 pg (26-34); Mean Corpuscular Volume 88.1 fl (80-100); Mean Platelet Volume 9.2 fl (7.4-10.4); Monocytes Absolute Auto 0.4 K/mm3 (0.1-0.6); Monocytes Percent Auto 4.8 % (2.6-8.5); Neutrophils Absolute Auto 6.3 K/mm3 (1.3-6.7); Neutrophils Percent Auto 78.6 % (45.5-73.1); Platelet Count Result 196 k/mm3 (150-375); Red Blood Count 3.87 M/mm3 (4.2-5.4); Red Cell Distribution Width 13.3 % (11.5-14.5); White Blood Count 8.1 K/mm3 (4.5-10.0)
[2022-03-11 16:34] LABS: Glucose 1 Hour PP 50gm Dose 126 mg/dL
[2022-03-11 17:16] LABS: HIV 1/2 Ab P24 Ag Result Negative (Negative)
[2022-03-14] MEDS: RHO(D) IMMUNE GLOBULIN 300 MCG/2 ML SYRINGE IM (09:28)
== END 2022-03-14 09:00 | disposition home or self-care (01) ==
LOC: ANHLAB 08:15
PROVIDERS: PCP Internal Medicine Gastroenterology; Visit Provider Obstetrics & Gynecology
DX: Z11.4 Encounter for screening for human immunodeficiency virus [HIV] (principal); Z29.13 Encounter for prophylactic Rho(D) immune globulin; O36.0190 Maternal care for anti-D [Rh] antibodies, unspecified trimester, not applicable or unspecified; Z3A.00 Weeks of gestation of pregnancy not specified
CPT/HCPCS: 36415; 82947; 85025; 85461; 86703; 86850; 86900; 86901; 90384; 96372; G0432; J2790

== ENCOUNTER 2022-05-14 10:20 | Outpatient (CLI) | payer OTHER, SELFPAY ==
[2022-05-17 12:19] LABS: Rapid Plasma Reagin Non-Reactive (NonReactive)
== END 2022-05-14 10:21 | disposition home or self-care (01) ==
LOC: ANHLAB 10:21
PROVIDERS: PCP Internal Medicine Gastroenterology; Visit Provider Obstetrics & Gynecology
DX: Z34.93 Encounter for supervision of normal pregnancy, unspecified, third trimester (principal); Z3A.39 39 weeks gestation of pregnancy
CPT/HCPCS: 36415; 86592

== ENCOUNTER 2022-05-15 01:14 | Observation (INO) | payer OTHER, SELFPAY ==
[2022-05-15 01:20] VITALS: BMI 47.9
[2022-05-15 01:30] VITALS: BP 107/53; PULSE 84
--- NOTE | 2022-05-15 02:34 | OBADM ---
This patient, Sunita Fan, admitted to the OB room Labor/Delivery/Recovery 106 for observation. Patient/family oriented to hospital policies and general routines including ID bracelet, bed and alarms, visiting hours, pain management, procedures, bathroom and other care routines, personal items, smoking policy, room service/diet, and visiting hours. Patient/Family are encouraged to report perceived risks to care and to ask questions if they do not understand what they are told or what they should do.
--- NOTE | 2022-05-19 11:19 | PM.OBTRLD ---
OB - Triage/Final Diagnosis Visit Information Comments/Additional reasons for admission: I have assessed the risk for this patient, Sunita Fan, and determined that she would benefit from observation care. Final Diagnosis (1) False labor: Code(s): O47.9 - False labor, unspecified Status: Acute
== END 2022-05-15 02:45 | disposition home or self-care (01) ==
PROVIDERS: Admitting Provider Obstetrics & Gynecology; PCP Internal Medicine Gastroenterology; Visit Provider Obstetrics & Gynecology
DX: O47.1 False labor at or after 37 completed weeks of gestation (principal); Z3A.37 37 weeks gestation of pregnancy
CPT/HCPCS: G0378; G0379

== ENCOUNTER 2022-05-28 05:55 | Inpatient (IN) | payer OTHER, SELFPAY ==
[2022-05-28] VITALS (85 sets, daily range): BP systolic 101–135; BP diastolic 47–109; PULSE 69–114; RESP 16–18; TEMP 36.3–37; O2SAT 95–100; BMI 51.6
[2022-05-28 06:35] LABS: Basophils Percent Auto 0.2 % (0.2-1.2); Eosinophils Absolute Auto 0.1 K/mm3 (0-0.3); Eosinophils Percent Auto 1.1 % (0-4.4); Hematocrit 31.8 % (37.0-47.0); Hemoglobin 10.6 g/dL (12.0-15.0); Immature Granulocyte Absolute 0.07 K/mm3 (0.00-0.031); Immature Granulocyte Percent A 0.7 % (0-0.5); Lymphocytes Absolute Auto 2.04 K/mm3 (0.9-3.2); Lymphocytes Percent Auto 20.3 % (18.3-44.2); Mean Corpuscular HGB Conc 33.3 g/dl (32-36); Mean Corpuscular Hemoglobin 28.7 pg (26-34); Mean Corpuscular Volume 86.2 fl (80-100); Mean Platelet Volume 9.5 fl (7.4-10.4); Monocytes Absolute Auto 0.8 K/mm3 (0.1-0.6); Monocytes Percent Auto 8.1 % (2.6-8.5); Neutrophils Percent Auto 69.6 % (45.5-73.1); Platelet Count Result 202 k/mm3 (150-375); Red Blood Count 3.69 M/mm3 (4.2-5.4); Red Cell Distribution Width 14.2 % (11.5-14.5)
[2022-05-28] MEDS: LACTATED RINGERS 1,000 ML 125 ML IV CONT (06:37)
[2022-05-28] MEDS: AMPICILLIN 2 GM/NS 100 ML 2 GM/100 ML BAG IVPB (06:38)
[2022-05-28] MEDS: OXYTOCIN 30 UNITS/NS 500 ML 30 UNITS/500 ML BAG IV CONT (06:40)
--- NOTE | 2022-05-28 06:50 | LDADM ---
This patient, Sunita Fan, was admitted to Labor/Delivery/Recovery 104 on 05/28/22 at 05:55. Plans for labor, pain management and were discussed with patient. Patient/family oriented to hospital policies and general routines including ID bracelet, bed and alarms, visiting hours, pain management, procedures, bathroom and other care routines, personal items, smoking policy, room service/diet and guest tray routines, security routines, and visiting hours. Patient/Family are encouraged to report perceived risks to care and to ask questions if they do not understand what they are told or what they should do. See OBIX for further documentation.
[2022-05-28] MEDS: LACTATED RINGERS 1,000 ML 999 ML IV CONT (08:02)
[2022-05-28] MEDS: fentaNYL CITRATE INJ (*CRX) 100 MCG/2 ML VIAL IV PUSH (08:14)
--- NOTE | 2022-05-28 09:09 | WPDANESEPP ---
Anes - Eval Pre Procedure Procedure: labor epidural Date/Time: 05/28/22 0720 Preop Diagnosis: labor pain Pre Op Diagnosis: Induction of Labor Patient Data Age: 22 Gender: F Height: 1.52 m Weight: 120 kg Last Vital Signs Temp 36.8 C 05/28/22 08:52 Pulse 80 05/28/22 09:08 BP 122/62 05/28/22 09:08 Pulse Ox 99 05/28/22 09:09 O2 Del Method Room Air 05/28/22 06:54 Allergies Allergy/AdvReac Type Severity Reaction Status Date / Time No Known Allergies Allergy Verified 05/26/22 10:49 Home Medications Medication Instructions Recorded Confirmed Type acetaminophen 500 mg tablet 500 mg PO Q6H PRN Headache 02/17/22 05/26/22 History (Tylenol Extra Strength) prenat.vits,tala,[id number]-[id number] 1 tablet PO DAILY 05/08/22 05/26/22 History metoclopramide HCl 10 mg tablet 10 mg PO Q6H PRN nausea and 05/24/22 05/26/22 Rx (Reglan) vomiting #20 tabs Laboratory Tests 05/28/22 05/28/22 05/28/22 06:20 06:20 06:20 WBC 10.0 K/mm3 K/mm3 (4.5-10.0) RBC 3.69 M/mm3 L M/mm3 (4.2-5.4) Hgb 10.6 g/dL L g/dL (12.0-15.0) Hct 31.8 % L % (37.0-47.0) MCV 86.2 fl fl (80-100) MCH 28.7 pg pg (26-34) MCHC 33.3 g/dl g/dl (32-36) RDW 14.2 % % (11.5-14.5) Plt Count 202 k/mm3 k/mm3 (150-375) MPV 9.5 fl fl (7.4-10.4) Immature Gran % (Auto) 0.7 % H % (0-0.5) Neut % (Auto) 69.6 % % (45.5-73.1) Lymph % (Auto) 20.3 % % (18.3-44.2) [place] % (Auto) 8.1 % % (2.6-8.5) Eos % (Auto) 1.1 % % (0-4.4) Baso % (Auto) 0.2 % % (0.2-1.2) Lymph # (Auto) 2.04 K/mm3 K/mm3 (0.9-3.2) [place] # (Auto) 0.8 K/mm3 H K/mm3 (0.1-0.6) Eos # (Auto) 0.1 K/mm3 K/mm3 (0-0.3) Baso # (Auto) 0.0 K/mm3 K/mm3 (0.0-0.1) Abs Immat Gran (auto) 0.07 K/mm3 H K/mm3 (0.00-0.031) Absolute Neuts (auto) 7.0 K/mm3 H K/mm3 (1.3-6.7) Absolute Nucleated RBC 0.0 K/mm3 K/mm3 (0.0-0.012) Nucleated RBC % 0.0 % % (0.0-0.2) RPR Pending Blood Type A Negative Antibody Screen Negative Patient hx anesthesia problems: none Family hx anesthesia problems: none Results Review: All pre-operative results and documents have been reviewed as part of the pre-operative evaluation. [facility] Past Medical History Medical History Morbid obesity with BMI of 45.0-49.9, adult Surgical History Surgical History No pertinent past surgical history Family History Family History Sibling Mental disability Grandparent Metastatic adenocarcinoma Grandparent Heart disease Mother Cervical cancer Social History Social History Smoking status: Never smoker Second hand tobacco smoke exposure: No Alcohol intake: never Substance use: never Lack of Transportation: No Lack of Food: Never True Current Housing: I Have Housing Concerned About Future Housing: No Difficulty Paying Gas/Electric Bills: No Difficulty Paying for Meds: No Currently Unemployed: No Education: High School Diploma/GED Difficulty w/ Childcare or Family Care: No Living arrangements: with family Occupation/Education: occupation Gender identity (if verbalized by the patient): Female Sexual Orientation (if Verbalized by the Patient): Straight or Heterosexual Spiritual care concerns: No Exam Day of Procedure 05/28/22 09:09 Patient weight: normal Heart: regular rate and rhythm Lungs: clear to auscultation and normal air movement Airway: Mallampati scale Neurological: alert and oriented
[2022-05-28] MEDS: AMPICILLIN 1 GM/NS 50 ML 1 GM/50 ML BAG IVPB (10:20)
[2022-05-28 11:29] LABS: Rapid Plasma Reagin Non-Reactive (NonReactive)
--- NOTE | 2022-05-28 12:14 | WPDHPUPDATE1 ---
History and Physical Update Update Date/Time: 05/28/22 12:14 History and Physical has been reviewed, including an updated exam of the patient. There are NO changes in the patient's condition. Risks, benefits, and alternatives have been discussed and questions answered. Patient agrees to proceed with procedure.
--- NOTE | 2022-05-28 12:15 | WPDOBADMIT ---
Obstetrics - Admit Note Admission Note: record reviewed. No pertinent additions to the history and/or any subsequent changes in the physical findings that are not consistent with the expected course of the were found. Additions to the history and/or subsequent changes in the physical findings follow. None.
--- NOTE | 2022-05-28 12:15 | PM.OBPRVD ---
OB - Delivery Note Procedure Induction method: AROM Delivery augmentation: Pitocin Delivery monitor: External FHT and External Uterine Route of delivery: Episiotomy description: None Laceration Description: None Specimen: No Quantitative Blood Loss (ml): 200 Anesthesia type: Epidural Disposition: Floor Complications: none Narrative: Patient prepped and draped in usual manner for this procedure. Maternal expulsive readily deliver the vertex rest delivery without. Cord clamped cut and placenta delivered spontaneously. Cervix vulva were inspected no lacerations or tears. At this point immediate postop condition of mother baby both excellent. Baby Weeks of gestation at delivery: 39 gender: Male Weight (pounds): 7 Weight (ounces): 6 presentation: vertex position: Left Occiput Posterior Placenta delivery description: Spontaneous Cord Vessel Description: 3 Vessels and Clamped/Cut score one minute: 9 score five minutes: 9 AMG Delivery Billing Delivery Delivery: Delivery Charge
[2022-05-28] MEDS: OXYTOCIN 30 UNITS/NS 500 ML 30 UNITS/500 ML BAG 125 UNITS IV CONT (12:21)
[2022-05-28] MEDS: IBUPROFEN 600 MG TABLET PO (22:28)
[2022-05-29 05:08] LABS: Hematocrit 30.1 % (37.0-47.0)
[2022-05-29] MEDS: IBUPROFEN 600 MG TABLET PO ×2 (07:23→15:10)
[2022-05-29 07:25] VITALS: BP 106/70; PULSE 73; RESP 16; TEMP 36.9; O2SAT 99
[2022-05-29] MEDS: RHO(D) IMMUNE GLOBULIN 300 MCG/2 ML SYRINGE IM (09:57)
--- NOTE | 2022-05-29 11:50 | WPDANLDPN2 ---
Anes-Prog Note L&D Date/Time: 05/29/22 11:50 Comfortable throughout: labor and delivery Neuraxial method: epidural Epidural/Spinal procedure site: clean & non-tender Neuro status: Neuro function grossly intact. Cardiovascular status: normal Respiratory status: normal Airway patency: baseline Mental status: baseline Post-Op hydration status: normal Vital Signs: Last Vital Signs Temp 36.9 C 05/29/22 07:25 Pulse 73 05/29/22 07:25 Resp 16 05/29/22 07:25 BP 106/70 05/29/22 07:25 Pulse Ox 99 05/29/22 07:25 O2 Del Method Room Air 05/29/22 07:25 Pain score (VAS): 03/30 I/O: Intake & Output 05/28/22 05/29/22 05/29/22 23:59 07:59 15:59 Intake Total 240 Balance 240 Post-procedural complaints: none Patient feedback: Patient satisfied with anesthetic care.
--- NOTE | 2022-05-29 14:39 | PM.OBDSVD ---
DS: Admitting Diagnosis Discharge Date 05/30/2022 Admitting Diagnosis DS: Discharge Diagnosis Discharge Diagnosis (1) , delivered: Code(s): O80 - Encounter for full-term uncomplicated delivery Status: Acute OB - DS: Summary OB Procedures : None OB Procedures Intrapartum: Spontaneous Vag Delivery OB Procedures: : None Time Spent with Patient Time attestation: Total time spent providing and/or coordinating discharge services: DS: Data Data Completed and Pending Labs on day of discharge: Labs from last 24 hours 05/29/22 05/29/22 05:02 03:25 Hgb 10.0 L Hct 30.1 L Blood Type A Negative Antibody Screen Negative Screen Negative Baby's Blood Type O pos Baby's ADAM Negative Doses of RhIg Required 1 Discharge Plan Discharge Discharging Clinician: Juan Miguel Millard Patient Disposition: Home, Self-Care Activity: as tolerated Diet: as tolerated Patient Instructions: Antibiotic Form Stand Alone Forms: General Discharge Information Follow-up/Referrals: Juan Miguel Millard MD [Physician] - 3 Weeks Discharge Medications: New ibuprofen 600 mg Tablet 600 mg PO Q6H PRN (Reason: Cramping) Qty: 30 0RF Continued acetaminophen [Tylenol Extra Strength] 500 mg tablet 500 mg PO Q6H PRN (Reason: Headache) prenat.vits,tala,ubs-wumg-puuir Tablet 1 tablet PO DAILY metoclopramide HCl [Reglan] 10 mg tablet 10 mg PO Q6H PRN (Reason: nausea and vomiting) Qty: 20 1RF Date of admission: 05/28/22 05:55 Primary Care Provider: IvethJacob Admitting Provider: Juan Miguel Millard Attending physician on admission: Juan Miguel Mlilard Condition: Stable
[2022-05-29 18:13] VITALS: BP 123/71; PULSE 83; RESP 18; TEMP 36.7; O2SAT 100
[2022-05-30] MEDS: IBUPROFEN 600 MG TABLET PO ×2 (00:05→08:29)
--- NOTE | 2022-05-30 08:00 | PC.NURSE ---
Pt introductions made and plan of care discussed per post , pain management, bottle feeding, daily care activities and pending discharge to home. PT sole recipient of such instructions and no barriers to learning identified. PT received such instructions per one to one discussion, mom baby care guide and demonstrations this shift. PT verbalized understanding of such care.
[2022-05-30] MEDS: MULTIVIT/MIN/PREN/FOL AC/IRON TABLET 1 TAB PO (08:29)
[2022-05-30] MEDS: DOCUSATE SODIUM 100 MG CAPSULE PO (08:29)
[2022-05-30 09:30] VITALS: BP 120/68; PULSE 80; RESP 18; TEMP 36.8; O2SAT 100
--- NOTE | 2022-05-30 11:30 | PC.NURSE ---
PT received discharge instructions per protocol and verbalized understanding of such care.
--- NOTE | 2022-05-30 12:07 | PC.NURSE ---
Pt discharged to home ambulatory accompanied by fob and infant and taken to waiting car. Follow up appts confirmed
[2022-06-02 11:32] VITALS: BP 106/43; PULSE 72; RESP 18; TEMP 36.7; O2SAT 100
== END 2022-05-30 12:07 | disposition home or self-care (01) | DRG 560 ==
LOC: ANHLDR 05:59 → ANHOB2 14:47
PROVIDERS: Admitting Provider Obstetrics & Gynecology; PCP Internal Medicine Gastroenterology; Visit Provider Obstetrics & Gynecology
DX: O99.824 Streptococcus B carrier state complicating childbirth (principal); Z37.0 Single live birth; Z3A.39 39 weeks gestation of pregnancy
CPT/HCPCS: 36415; 85014; 85018; 85025; 85461; 86592; 86850; 86900; 86901; 90384; A9270; J0290; J2590; J2790; J2795; J3010; J7120

== ENCOUNTER 2022-08-25 09:38 | Outpatient (CLI) | payer OTHER, SELFPAY ==
[2022-08-25 10:43] LABS: Beta HCG Quantitative < 2.39 mIU/ML
== END 2022-08-25 09:39 | disposition home or self-care (01) ==
LOC: ANHLAB 09:40
PROVIDERS: PCP Family Medicine; Visit Provider Obstetrics & Gynecology
DX: N92.6 Irregular menstruation, unspecified (principal)
CPT/HCPCS: 36415; 84702

== ENCOUNTER 2022-11-09 02:45 | Day surgery (SDC) | payer OTHER, SELFPAY ==
[2022-11-02 13:49] VITALS: BMI 43.9
--- NOTE | 2022-11-02 13:55 | PC.NURSE ---
Report to the Outpatient Waiting Room, entrance under the green pavilion located off [facility], at time _1030_ on date _[id number]_. Planned Procedure Time: _1230pm_. Time changes happen often and if your time is changed the preop area will call you the afternoon before. - You and your visitor will be asked to self-screen and do not enter if you have any COVID symptoms. - A mask is optional within the hospital at this time. Patients may have clear liquids (water, carbonated beverages, clear teas, apple juice) until 3 hours prior to surgery with a maximum of 20 ounces. - No food from midnight until time of surgery Take the following medications with a SIP of water the morning of surgery: ____None DO NOT STOP ANY OF YOUR OTHER PRESCRIPTION MEDICATIONS PRIOR TO SURGERY ?EXCEPT THE FOLLOWING Medications to discontinue per physician None Date to take last dose Please no make-up, nail upper sorbian, hairspray, perfume, deodorant, or body powder the day of surgery. No jewelry (including any body piercings) or valuables the day of surgery, leave them at home. Please take a shower or bath the night before, or the morning of, surgery with an antibacterial soap. Wear comfortable, loose fitting clothing. - Jewelry must be removed prior to entering the operating room. Rings and piercings that are not removed may be cut off. - The hospital will not accept responsibility for valuables. - Please leave all valuables, including medications, at home the day of surgery. If you are going home after surgery, a licensed miniature train driver must drive you home. - NO public transportation without another adult if you receive anesthesia. - We recommend that an adult stay with you for 24 hours following discharge. - We also recommend that you do not drive, make important decision, drink alcoholic beverages, or take any drugs that were not prescribed by your health care provider for at least 24 hours after your discharge time. Follow any additional instructions given to you from your surgeon. If you or anyone in your household have experienced Covid symptoms in the past week, please notify your surgeon or the nurse liaison at the phone number below for possible testing. Telephone instructions given to _Patient and asked if any additional questions and then verbalized understanding. Patient advised to call surgeon office or pre surgery nurse liaison [phone] if any additional questions.
--- NOTE | 2022-11-08 16:50 | PM.IMHP ---
H&P: HPI History of Present Illness Date/Time: 11/08/22 16:50 Chief Complaint: septal deviation turbinate hypertrophy adenoid hypertrophy nasal obstruction Review of Systems Review of Systems: All systems reviewed & are unremarkable except as noted in HPI and below PMFSH Past Medical History Medical History Morbid obesity with BMI of 45.0-49.9, adult Surgical History Surgical History No pertinent past surgical history Family History Family History Sibling Mental disability Grandparent Metastatic adenocarcinoma Grandparent Heart disease Mother Cervical cancer Social History Social History Smoking status: Never smoker Second hand tobacco smoke exposure: No Alcohol intake: current Alcohol use details: 1-2 month Substance use: never Substance use type: does not use Lack of Transportation: No Lack of Food: Never True Current Housing: I Have Housing Concerned About Future Housing: No Difficulty Paying Gas/Electric Bills: No Difficulty Paying for Meds: No Currently Unemployed: No Education: High School Diploma/GED Difficulty w/ Childcare or Family Care: No Living arrangements: with family Additional living arrangements comments: single Occupation/Education: unemployed Gender identity (if verbalized by the patient): Female Sexual Orientation (if Verbalized by the Patient): Straight or Heterosexual Spiritual care concerns: No Meds Home Medications and Allergies Home Medications Medication Instructions Recorded Confirmed Type etonogestrel 68 mg subdermal 1 implant subdermal ONCE 08/26/22 11/02/22 History implant (Nexplanon) Allergies Allergy/AdvReac Type Severity Reaction Status Date / Time No Known Allergies Allergy Verified 11/02/22 13:48 Exam Narrative: large adenoids large turbinates septal deviation Assessment and Plan Assessment and plan (1) Nasal congestion: Code(s): R09.81 - Nasal congestion Status: Acute Assessment and Plan: plan OR endoscopic assisted septoplasty inferior turbinate reduction with outfracture adenoidectomy transnasal possibly transoral risks were discussed including change in swallow damage to blayne to bear I septal perforation failure to resolve symptoms need for further procedures time off work time off school risk narcotic use postoperative bleeding need for splint placement. Change in vision total blindness CSF leak brain brain damage failure to resolve symptoms. Damage to any structure above the clavicles by myself damage to any structure during the induction and remains of anesthesia. Patient voiced u (2) Nasal obstruction: Code(s): J34.89 - Other specified disorders of nose and nasal sinuses Status: Acute (3) Snoring: Code(s): R06.83 - Snoring Status: Acute (4) Adenoid hypertrophy: Code(s): J35.2 - Hypertrophy of adenoids Status: Acute (5) Hypertrophy of both inferior nasal turbinates: Code(s): J34.3 - Hypertrophy of nasal turbinates Status: Acute (6) Nasal septal deviation: Code(s): J34.2 - Deviated nasal septum Status: Acute
[2022-11-09] VITALS (9 sets, daily range): BP systolic 126–153; BP diastolic 75–100; PULSE 60–82; RESP 12–24; TEMP 36.2–36.3; O2SAT 92–100
--- NOTE | 2022-11-09 07:15 | WPDHPUPDATE1 ---
History and Physical Update Update Date/Time: 11/09/22 07:15 History and Physical has been reviewed, including an updated exam of the patient. There are NO changes in the patient's condition. Risks, benefits, and alternatives have been discussed and questions answered. Patient agrees to proceed with procedure.
[2022-11-09] MEDS: ACETAMINOPHEN 500 MG TABLET 1000 MG PO (10:50)
[2022-11-09] MEDS: LACTATED RINGERS 1,000 ML 30 ML IV CONT ×2 (11:20→17:14)
--- NOTE | 2022-11-09 14:17 | WPDANESEPPF ---
Anes - Initial Pre Proc Eval Procedure: Operation Date: 11/09/22 12:30 Proposed Procedures p Adenoidectomy, - Rocky Dove MD s Bilateral Inferior Turbinectomy with Outfracture, - Rocky Dove MD s Endoscopic Septoplasty - Rocky Dove MD Date/Time: 11/09/22 14:17 Surgeon: Rocky Dove MD Pre Op Diagnosis: Hypertro Adenoids, Septal Dev, Turbinate Hypertro Patient Data Age: 22 Gender: F Height: 1.57 m Weight: 107.8 kg Last Vital Signs Temp 36.3 C L 11/09/22 10:57 Pulse 74 11/09/22 10:57 Resp 20 11/09/22 10:57 BP 126/75 11/09/22 10:57 Pulse Ox 100 11/09/22 10:57 O2 Del Method Room Air 11/09/22 10:57 Allergies Allergy/AdvReac Type Severity Reaction Status Date / Time No Known Allergies Allergy Verified 11/09/22 10:49 Home Medications Medication Instructions Recorded Confirmed Type etonogestrel 68 mg subdermal 1 implant subdermal ONCE 08/26/22 11/02/22 History implant (Nexplanon) Patient hx anesthesia problems: none Family hx anesthesia problems: none Results Review: All pre-operative results and documents have been reviewed as part of the pre-operative evaluation. [facility] Past Medical History Medical History Morbid obesity with BMI of 45.0-49.9, adult Surgical History Surgical History No pertinent past surgical history Family History Family History Sibling Mental disability Grandparent Metastatic adenocarcinoma Grandparent Heart disease Mother Cervical cancer Social History Social History Smoking status: Never smoker Second hand tobacco smoke exposure: No Alcohol intake: current Alcohol use details: 1-2 month Substance use: never Substance use type: does not use Lack of Transportation: No Lack of Food: Never True Current Housing: I Have Housing Concerned About Future Housing: No Difficulty Paying Gas/Electric Bills: No Difficulty Paying for Meds: No Currently Unemployed: No Education: High School Diploma/GED Difficulty w/ Childcare or Family Care: No Living arrangements: with family Additional living arrangements comments: single Occupation/Education: unemployed Gender identity (if verbalized by the patient): Female Sexual Orientation (if Verbalized by the Patient): Straight or Heterosexual Spiritual care concerns: No Anes - Eval Final PreProcedure Day of Procedure 11/09/22 14:17 Patient weight: morbidly obese Heart: regular rate and rhythm Lungs: clear to auscultation Airway: Mallampati scale class II Neurological: alert and oriented Last oral intake: >/= 8 hours ASA classification: III Emergent: no Anesthetic plan: proceed Anesthesia type and monitoring: general ETT and standard monitoring Results Review: All pre-operative results and documents have been reviewed as part of the pre-operative evaluation. Informed Consent: The patient's anesthetic plan and its attendant risks and benefits were discussed with the patient/family/POA. Questions were solicited and answers provided to the satisfaction of the patient/family/POA.
[2022-11-09] MEDS: ceFAZolin 2 GM/D5W 50 ML 2 GM/50 ML BAG IVPB (15:19)
[2022-11-09] MEDS: OXYMETAZOLINE HCL 0.05% NAS 15 ML BTL (*BKC) 1 SPRAY NASAL (15:45)
[2022-11-09] MEDS: LIDO 1%/EPINEPHRINE 1:100,000 20 ML VIAL INFILTRATE (15:46)
--- NOTE | 2022-11-09 17:12 | SUR.PHASEI ---
1710 - dr. carrillo at bedside.
--- NOTE | 2022-11-09 17:48 | W.PM.PROC2 ---
Procedure Note - Detailed Date of Procedure 11/09/22 Pre-op Diagnosis Hypertro Adenoids, Septal Dev, Turbinate Hypertro Post-op Diagnosis Same Procedure Performed Transnasal adenoidectomy inferior turbinate reduction bilateral with outfracture endoscopic assisted septoplasty Surgeon Rocky Dove MD Anesthesia General Indications See above Findings Deviated septum S shaped right inferiorly left superiorly large turbinates completely obstructive adenoid pad. Description of Procedure Patient identified consent verified in the preoperative holding area. Patient brought operating. Time-out performed. General anesthesia induced endotracheal tube secured airway. Patient prepped draped positioned 0 degree endoscope utilized 10 cc 1% lidocaine 1 100,000 parts epinephrine 2nd bilateral nasal septum inferior turbinates Chente incision made left-sided 15 blade left nasal septal flap elevated 7 Tamazight suction osteotome utilized to cross over. Right nasal septal flap elevated. Deviated septum removed combination Too forceps Justin Moss forceps osteotome. There was some bleeding from the superior portion of the septum this was cauterized Bovie suction electrocautery setting of 15. Chente incision closed interrupted 5 0 fast gut sutures. Turbinates reduced in submucosal plane using microdebrider turbinate blade. There was a tear in the left-sided sorry the right side that bled several cc this was cauterized Bovie suction electrocautery setting of 15. The entry points of mulberry tips were also cauterized. The adenoid pad was then cauterized with Bovie suction electrocautery at a setting of 35. Afrin-soaked pledgets were placed for 5 minutes then removed bleeding was essentially minimal at that point any oozing was cauterized Bovie suction electrocautery. Vitale splints were placed bilaterally sutured anteriorly using a 3-0 mattressed nylon suture. I performed all dictated portions of seizure no complications. Care the patient given back to Anesthesiology. Estimated Blood Loss 15 Drains No Packing No Pathology None sent Complications No immediate complications Condition Stable Disposition PACU [facility] Billing Surgery - Charge Forward: Surgery Billing
[2022-11-09] MEDS: oxyCODONE HCL (*CRX) 5 MG TAB IR PO (18:09)
--- NOTE | 2022-11-09 18:50 | SUR.PHASEII ---
DR SIERRA IN PATIENT ROOM TO ASSESS FOR BLEEDING. PATIENT IS CLEARED TO D/C
== END 2022-11-09 09:08 | disposition home or self-care (01) ==
PROVIDERS: PCP Family Medicine; Visit Provider Otolaryngology
PROC: (CPT 42999; principal; 2022-11-09 12:30)
PROC: (CPT 42999; 2022-11-09 12:30)
PROC: (CPT 30520; 2022-11-09 12:30)
DX: J35.2 Hypertrophy of adenoids (principal); J34.3 Hypertrophy of nasal turbinates; J34.2 Deviated nasal septum; E66.01 Morbid (severe) obesity due to excess calories; Z68.41 Body mass index [BMI] 40.0-44.9, adult; R06.83 Snoring; R09.81 Nasal congestion
CPT/HCPCS: 42999; 30520; 30140; A9270; J0330; J0690; J1100; J2250; J2405; J2704; J3010; J7120

== ENCOUNTER 2023-02-21 14:38 | Outpatient (CLI) | payer OTHER, SELFPAY ==
--- NOTE | ~2023-02-21 | XR_ITS ---
EXAMINATION: XR thoracic spine 3V DATE: 02/21/2023 15:05 INDICATION: Low back pain, unspecified. TECHNIQUE: 3 views of thoracic spine were obtained. COMPARISON: None. FINDINGS: Bone alignment is normal. Vertebral body heights are normal. Intervertebral disc heights ar e normal. There are endplate osteophytes at multiple levels. IMPRESSION: 1. Mild thoracic spondylosis. Reviewed, dictated and finalized at location E. S REPRESENTATIVE ADDING MACHINES
--- NOTE | ~2023-02-21 | XR_ITS ---
EXAMINATION: XR lumbar spine min 4V DATE: 02/21/2023 15:05 INDICATION: Low back pain, unspecified. TECHNIQUE: 5 views of lumbar spine were obtained. COMPARISON: None. FINDINGS: Bone alignment is normal. Vertebral body heights are normal. Intervertebral disc heights ar e normal. The facet joints are unremarkable. IMPRESSION: 1. Normal lumbar spine. Reviewed, dictated and finalized at location E. L DIVISION COMMANDER DEPUTY SHERIFF IMPRESSION: 1. Normal lumbar spine.
== END 2023-02-21 14:39 | disposition home or self-care (01) ==
PROVIDERS: PCP Family Medicine; Visit Provider Family Medicine
DX: M54.6 Pain in thoracic spine (principal); M54.50 Low back pain, unspecified; M43.04 Spondylolysis, thoracic region
CPT/HCPCS: 72072; 72110

== ENCOUNTER 2024-10-04 18:12 | Emergency (ER) | payer OTHER, SELFPAY ==
--- NOTE | ~2024-10-04 | CT_ITS ---
EXAMINATION: CT abdomen pelvis w con DATE: 10/04/2024 23:58 INDICATION: fever, abdominal pain, CVA tenderness TECHNIQUE: Computed tomography (CT) of the abdomen and pelvis was performed with 100 mL Omnipaque-350 intravenous contrast. Automated exposure control and iterative reconstruction technique were employe d. The dose-length product was 1590.48 mGy-cm. COMPARISON: None. FINDINGS: Lower thorax: Mild dependent atelectasis. Liver: Normal. Biliary/Gallbladder: No inflammatory change. Biliary sludge and likely gallstones. No bile duct dilat ion. Pancreas: No mass or duct dilation. Spleen: Enlarged. Adrenals:No mass. Kidneys: No suspicious mass, obstructing stone, or hydronephrosis. GI tract: Mild distal esophageal and gastric wall edema. No small or large bowel dilation. Normal tank endix. Mesentery/Peritoneum: No ascites, mass, or free air. Retroperitoneum: No mass. Pelvis: Pelvic organs are within normal limits. Soft Tissues: Small uncomplicated fat-containing umbilical and left inguinal hernias. Bones: No acute osseous finding. IMPRESSION: Mild esophagitis/gastritis. Splenomegaly. Biliary sludge and likely gallstones, without inflammatory changes to suggest cholecystitis. Otherwise unremarkable CT abdomen and pelvis findings. Reviewed, dictated and finalized at location K. IMPRESSION: Mild esophagitis/gastritis. Splenomegaly. Biliary sludge and likely gallstones, without inflammatory changes to suggest c holecystitis. Otherwise unremarkable CT abdomen and pelvis findings.
--- OUTSIDE RECORDS SUMMARY | 2024-10-04 18:14 | XMS_ITS | Data Portability ---
Author Organization DONOVAN ISAURAMinna Bonilla Address [address] [facility] [place] [address] Assessment No assessment recorded. Plan of Treatment Reminders Order Date Submit Date Provider Last Modified By Organization Details Last Modified Time Details Appointments None recorded. Lab PPD (purified protein derivative ), skin test 2019 020 ALESHIA In-Office Order, Internal Use Only DO Not Attach Compendium DO Not Attach Compendium, Do Not Delete/merge, [id number] 0 12:15:42 Referral None recorded. Procedures None recorded. Surgeries None recorded. Imaging CT, sinuses, w/o contrast 2020 021 [facility] ([facility]), [address] [place], [address], 1 11:29:43 Medication Orders levocetiri zine 5 mg tablet 2020 021 INTERFACE [facility] #[id number], [address] , [place], [place], [id number], 1 12:01:34 Tubersol 5 tub. unit/0.1 mL intraderma l injection solution 2019 020 [facility] #[id number], [address] [place], [place], [id number], 1 10:50:05 Tubersol 5 tub. unit/0.1 mL intraderma l injection solution 2019 020 [facility] #[id number], [address], [place], [place], [id number], 1 10:50:05 Patient TargetsNo targets recorded. Patient Instructions Encounter Date Encounter Id Patient Instructions Last Modified By Organization Details Last Modified Time 11/30/2019 [id number] learning about tuberculosis (TB) [email or web address] Not available 12/03/2019 09:41:31 Reason for Referral None Reported. Results Created Date Observation Date Name Description Value Unit Range Abnormal Flag Note LastModifiedBy Organization Detail LastModifiedTime 12/10/1912/10/2019 PPD (jennifer fied prote in deriv ative ), skin test Result Negati ve Not Available In-Office Order Internal Use Only DO Not Attach Compendium DO Not Attach Compendium, Do Not Delete/merge, [id number] 12/03/2019 09:37:40 Result Notes None recorded. Problems Name Problem SNOMED Code Status Onset Date Resolution Date Notes Provider Name and Address Organization Details Recorded Time Allergic rhinitis 21006965 Active 2020 Jacob Jackson MD Attn: Luke gunn,[address] [place], [address], [place] [facility] 1 11:55:12 Enlarged tonsil 293290839 Active 2020 Jacob Jackson MD Attn: Luke gunn,[address] [place], [address], [place] [facility] 1 11:55:56 History of SARS-CoV- 2 838157297474 616123 Active 2020Mar 2020 Jacob Jackson MD Attn: Luke gunn,[address] [place], [address], [place] [facility] 1 11:57:28 History of asthma 998759024 Active 2020 Exercise induced Jacob Jackson MD Attn: Luke gunn,[address] [place], [address], [place] [facility] 1 12:02:13 Problem Notes None recorded. Medical Equipment None Reported. Allergies No known drug allergies Medications Name Sig Start Date Stop Date Status Note LastModified by Organization Details LastModified Time Tubersol 5 tub. unit/0.1 mL intraderma l injection solution Administ er .1ml interder ange 04/16 completed yuliana hand candy dipper Not Available Not Available Not Available levocetiri zine 5 mg tablet Take 1 tablet every day by oral route. 2020 active Not Available Not Available Not Avai lable Vitals Date Recorded Body height Body mass index (BMI) Body weight Body temperature Heart rate Oxygen saturation Oxygen saturation in Arterial blood by Pulse oximetry Systolic And Diastolic Provider Name and Address Organization Details Last Updated DateTime 1 157.48 cm 43.9 kg/m2 951489. 17 g 98.1 [degF] 90 /min 92 % 92 % 114/76 mm[Hg] Nubia Sebastian MA [facility] 1 11:13:52 Date Recorded Body weight Heart rate Body temperature Oxygen saturation Oxygen saturation in Arterial blood by Pulse oximetry Body mass index (BMI) Body mass index (BMI) [Percentile] Per age and sex Body height Systolic And Diastolic Provider Name and Address Organization Details Last Updated DateTime 0 191749. 68 g 111 /min 97.6 [degF] 98 % 98 % 45.9 kg/m2 99 % 157.48 cm 102/68 mm[Hg] Licha Camarena MA [facility] 0 10:41:24 Date Recorded Body height Body temperature Provider N kait and Address Organization Details Last Updated DateTime 12/10/2019 157.48 cm 97.6 [degF] Mamie Vargas MA [facility] 12/10/2019 12:40:31 Social History None recorded. Functional Status None recorded. Mental Status None recorded. Family History Nothing Reported. Medical History No medical history recorded. Gynecological HistoryNo gynecological history recorded. Obstetrics History GPAL:G 0 P 0 0 0 0 Immunizations Vaccine Type Date Status Note Provider Nam e and Address Organization Details Recorded Time IPV 5 completed Genevieve Fallon RN null, [facility] 01/02/2020 12:42:46 IPV 0 completed Genevieve Fallon RN null, [facility] 01/02/2020 12:42:59 IPV 0 completed Genevieve Fall[place], [place] [facility] 01/02/2020 12:43:06 IPV 1 completed [place]ieve Fall[place] [facility] 01/02/2020 12:43:12 Hib, unspecified formulation 1 completed [place]evieve [place] [facility] 01/02/2020 12:43:28 Hib, unspecified formulation 0 completed [place]evieve [place] [facility] 01/02/2020 12:43:39 Hib, unspecified formulation 0 completed [place] [facility] 01/02/2020 12:43:47 Hib, unspecified formulation 0 completed [place] [facility] 01/02/2020 12:43:54 DTaP 0 completed [place] [facility] 01/02/2020 12:44:55 DTaP 0 completed [place] [facility] 01/02/2020 12:45:01 DTaP 0 completed [place] [facility] 01/02/2020 12:45:06 DTaP 1 completed [place] [facility] 01/02/2020 12:45:11 DTaP 5 completed [place] [facility] 01/02/2020 12:45:17 Hep B, adolescent or pediatric 0 completed [place] [facility] 01/02/2020 12:45:39 Hep B, adolescent or pediatric 0 completed [place] [facility] 01/02/2020 12:45:46 Hep B, adolescent or pediatric 1 completed [place] [facility] 01/02/2020 12:45:51 MMR 0 completed [place] [facility] 01/02/2020 12:46:15 MMR 5 completed [place] [facility] 01/02/2020 12:46:20 Hep A, ped/adol, 2 dose 9 completed [place] [facility] 01/02/2020 12:47:18 Hep A, ped/adol, 2 dose 5 completed [place] [facility] 01/02/2020 12:47:24 HPV, unspecified formulation 1 completed [place] [facility] 01/02/2020 12:47:41 HPV, unspecified formulation 1 completed [place] [facility] 01/02/2020 12:47:46 HPV, unspecified formulation 1 completed [place] [facility] 01/02/2020 12:47:52 Tdap 1 completed [place] [facility] 01/02/2020 12:48:13 pneumococcal conjugate PCV 7 0 completed [place] [facility] 01/02/2020 12:48:27 pneumococcal conjugate PCV 7 1 completed [place] [facility] 01/02/2020 12:48:34 varicella 1 completed [place] [facility] 01/02/2020 12:48:50 varicella 9 completed [place] [facility] 01/02/2020 12:48:58 meningococcal B, unspecified 1 completed [place] [facility] 01/02/2020 12:49:40 meningococcal B, unspecified 6 completed [place] [facility] 01/02/2020 12:49:46 COVID-19, mRNA, LNP-S, PF, 30 mcg/0.3 mL dose 1 completed [place]vez, [place] [facility] 08/19/2020 14:11:11 COVID-19, mRNA, LNP-S, PF, 30 mcg/0.3 mL dose 1 completed Isaura Chávez null, [place] - [facility] 08/19/2020 14:12:00 Tdap 0 completed Licha Migue RICCI null, [place] - [facility] 12/03/2019 09:41:31 Past Encounters Encounter ID Performer Location Encounter Start Date Encounter Closed Date Diagnosis/Indication Diagnosis SNOMED-CT Code Diagnosis ICD10 Code Diagnosis Note [id number] Staci Araujo [facility] e FP (DOT 104) [address] [place] [address] 11/30/2019 10:29:42 12/03/2019 11:44:01 History and physical examination, [facility] 44497087 Z02.0 negative assessment . no restrictio ns indicated. denies asthma, heart disease and sickle cell. Active or passive immunization 978795891 Z23 tdap given per ma per vo. not due until 08/2020. pt states she would like to get it over with Tuberculos is screening 394733130 Z11.1 ppd given per ma per vo. for completion of 2 step ppd, pt to return on 12/02, 12/09 and 12/11. [id number] [facility] [address] [place] [address] 12/10/2019 12:15:40 12/11/2019 08:14:19 Tuberculosis screening 550998958 Z11.1 ppd given per ma per vo. for completion of 2 step ppd, pt to return on 12/02, 12/09 and 12/11. [id number] Jacob Jackson MD [facility] (Adult Med) [address] [place] [address] 04/16/2020 10:28:39 04/17/2020 11:05:57 Allergic rhinitis 55857448 J30.9 Enlarged tonsil 71298639 2 J35.1 History of asthma 677659 007 Z87.09 Health Concerns Section Related Observation LastModified by Organization Detai ls LastModified Time None Recorded Concern Status LastModified by Organization Details LastModified Time None Recorded Advance Directives Directive None Recorded Payers Insurance Date Sequence Insurance Name Policy Number Policy Tang Covered Member ID Tang Member ID Guarantor Name 04/17/2020 1 [employer] BETTER HEALTH OF [place] ON OR AFTER 02/19/2020 (MEDICAID REPLACEMENT - HMO) Sunita Fan [id number] Sunita Fan 11/30/2019 [facility] ADULT BASIC EDUCATION PROGRAM Sunita Fan [id number] Sunita [place] 04/11/2020 1 [facility] (MEDICAID HMO) Sunita Santanas [id number] Sunita Fan Notes Date Note Type Note Provider Name and Address Organization Details Recorded Time 11/30/2019 text/html Pt presents to clinic requesting school physical. She denies nausea, vomiting, fever, chills, diarrhea, rash, cough, SOB, JIMÉNEZ, constipation and dysuria. RICCI Cordero, [facility] 12/03/2019 09:41:58 04/16/2020 text/html Has chronic rhinitis most of her life. 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 She did have Covid-19 infection one month ago. She has had exercise-induced asthma as a teenager. Jacob Jackson MD Attn: [address]ing[address] [place], [address], [facility] 04/16/2020 12:03:50 OBGyn Episode No OBEpisode recorded.
[2024-10-04 18:27] VITALS: BP 124/81; PULSE 119; RESP 20; TEMP 37.6; O2SAT 100
[2024-10-04 18:59] LABS: BEDSIDEPREGUCG Negative (Negative)
[2024-10-04 19:34] LABS: Add Urine Microscopic? YES; Appearance Urine Turbid (Clear); Budding Yeast Urine Present /hpf; Glucose Urine UA Negative (Negative); Leukocyte Esterase Ur 3+ LEU/UL (Negative); Need Manual Microscopic Reviewed; Nitrate Urine Negative (Negative); Specific Grav Ur 1.028 (1.001-1.035)
--- NOTE | 2024-10-04 21:02 | ECG_ITS ---
Test Date: 2024-10-04 23:29:22 Measurements Intervals [place] Rate: 108 P: 29 [place]: 124 QRS: 1 QRSD: 85 T: 5 QT: 316 QTc: 424 Interpretive Statements SINUS TACHYCARDIA POOR R-WAVE PROGRESSION/ LOW QRS VOLTAGE BORDERLINE ECG No previous ECG available for comparison Electronically Signed On 10-05-2024 07:45:25 CDT by Waldemar Gamble M.D.
--- NOTE | 2024-10-04 21:04 | ED.ABDPAIN ---
HPI - Abdominal Pain General Chief Complaint: Urogenital-Female Stated Complaint: uti Time Seen by Provider: 10/04/24 21:02 Focused HPI: Patient is a 24-year-old female who presents to the ER with bilateral lower abdominal and bilateral CVA tenderness. She reports she was diagnosed with a urinary tract infection on Tuesday and started on Macrobid. Patient has now been on oral antibiotics for 48 hours and her symptoms have worsened. She endorses fevers, chills, and urinary burning/urgency. Patient denies any chest pain, shortness of breath, lower extremity swelling, or vaginal discharge. She reports she does not get a menstrual period because she has a Nexplanon. Patient denies any medical history and does not take any daily medications. GENERAL: Ill-appearing, obese, and in mild distress d/t pain. HEAD: Normocephalic, atraumatic. CHEST: Clear to auscultation. ?No respiratory distress. HEART: Tachycardia NEURO: ?Alert and oriented x3. ABD: + tenderness in all four quadrants, + BS Patient screened in triage and initial orders placed.? ?Additional care and disposition to be based upon?diagnostic testing and treatment. Related Data Home Medications ?Medication ?Instructions ?Recorded ?Confirmed ?Last Taken ?Type etonogestrel 68 mg subdermal 1 implant subdermal ONCE 08/26/22 08/01/24 Unknown History implant (Nexplanon) Allergies Allergy/AdvReac Type Severity Reaction Status Date / Time No Known Allergies Allergy Verified 08/01/24 14:39 Review of Systems Review of Systems: All systems reviewed & are unremarkable except as noted in HPI and below PMFSH Past Medical History Medical History Nexplanon insertion 08/26/2022 Morbid obesity with BMI of 45.0-49.9, adult Surgical History Surgical History S/P nasal surgery 10/2022 No pertinent past surgical history Family History Family History Sibling Mental disability Grandparent Metastatic adenocarcinoma Grandparent Heart disease Mother Cervical cancer Social History Social History Smoking status: Never smoker Second hand tobacco smoke exposure: No Alcohol intake: current Alcohol use details: 1-2 month Substance use: never Substance use type: does not use Do You Feel Safe in your Home?: Yes Lack of Transportation: No Lack of Food: Never True Current Housing: I Have Housing Concerned About Future Housing: No Difficulty Paying Gas/Electric Bills: No Difficulty Paying for Meds: No Currently Unemployed: No Education: High School Diploma/GED Difficulty w/ Childcare or Family Care: No Living arrangements: with family Additional living arrangements comments: single Occupation/Education: occupation 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 HEAD: Normocephalic, atraumatic. NECK: Supple. No adenopathy, no masses. RESPIRATORY: Airway patent, respirations nonlabored. Clear to auscultation bilaterally, no rales, rhonchi, wheezing. CARDIOVASCULAR: Tachycardia without murmurs, rubs, or gallops. Peripheral pulses 2+ and equal bilaterally. ABDOMINAL: Soft, tender in all four quadrants, nondistended, no hepatosplenomegaly. Normoactive BS. MUSCULOSKELETAL: Moves all extremities. Strength/ROM intact without gross deformities. SKIN: Warm, dry, normal color. No rashes. NEURO: A&O X3. Speech clear. Cranial nerves II-XII intact. No ataxic movements. Course Vital Signs Vital signs: Vital Signs Temperature 37.6 C H 10/04/24 18:27 Pulse Rate 119 H 10/04/24 18:27 Respiratory Rate 20 10/04/24 18:27 Blood Pressure 124/81 10/04/24 18:27 Pulse Oximetry 100 10/04/24 18:27 Oxygen Delivery Room Air 10/04/24 18:27 Temperature 37.6 C H 10/04/24 18:27 Pulse Rate 105 H 10/04/24 23:15 Respiratory Rate 25 H 10/04/24 23:15 Blood Pressure 124/75 10/04/24 23:15 Pulse Oximetry 100 10/04/24 23:15 Oxygen Delivery Room Air 10/04/24 18:27 MDM - Abdominal Pain MDM Narrative Medical decision making narrative: Patient is a 24-year-old female who presents to the ER with bilateral lower abdominal and bilateral CVA tenderness. She reports she was diagnosed with a urinary tract infection on Tuesday and started on Macrobid. Patient has now been on oral antibiotics for 48 hours and her symptoms have worsened. She endorses fevers, chills, and urinary burning/urgency. Patient denies any chest pain, shortness of breath, lower extremity swelling, or vaginal discharge. She reports she does not get a menstrual period because she has a Nexplanon. Patient denies any medical history and does not take any daily medications. Labs Ordered: CBC, CMP, CRP, PTT, INR, lactic acid, blood cultures, urine hCG, UA Imaging Ordered: CT abdomen pelvis indicates Mild esophagitis/gastritis. Splenomegaly. Biliary sludge and likely gallstones, without inflammatory changes to suggest cholecystitis. Otherwise unremarkable CT abdomen and pelvis findings. Medications Ordered: 3 L normal saline IV bolus, morphine 4 mg IV, Tylenol p.o., ceftriaxone 1 g IV Results: Patient's CBC was unremarkable. Her coags were within normal limits. Patient's chemistry indicates an anion gap of 14, and creatinine of 1.04. Her C reactive protein is 4.2, patient's protein is 9.1. Patient's urinalysis indicates a urinary tract infection. Diagnosis: Urinary tract infection Patient Education/Shared MDM: Results of lab work and imaging shared with patient. She endorses significant improvement of symptoms following medication administration. Patient strongly advised to maintain hydration status upon discharge and follow-up with her PCP and 3-4 days. She will be discharged home with a prescription for levofloxacin. Patient advised to use Tylenol and ibuprofen together for pain control upon discharge. She was also advised to complete her full dose of antibiotics. Strict return precautions provided. Patient verbalized understanding and is in agreement with plan. Vital signs stable at time of discharge. All questions answered. Differential Diagnosis Differential diagnosis: Likely abdominal pain, calculus of kidney, gastroenteritis and other (Urinary tract infection, pyelonephritis) Lab Data Attestation: I reviewed the patient's lab results. 10/04/24 23:15 10/04/24 23:15 Labs: Lab Results 10/04/24 10/04/24 10/04/24 Range/Units 18:53 18:56 23:15 WBC 8.6 (4.5-10.0) K/mm3 RBC 4.93 (4.2-5.4) M/mm3 Hgb 14.3 D (12.0-15.0) g/dL Hct 42.7 (37.0-47.0) % MCV 86.6 (80-100) fl MCH 29.0 (26-34) pg MCHC 33.5 (32-36) g/dl RDW 12.6 (11.5-14.5) % Plt Count 219 (150-375) k/mm3 MPV 9.4 (7.4-10.4) fl Immature Gran % (Auto) 0.4 (0-0.5) % Neut % (Auto) 75.0 H (45.5-73.1) % Lymph % (Auto) 13.8 L (18.3-44.2) % [place] % (Auto) 10.6 H (2.6-8.5) % Eos % (Auto) 0.0 (0-4.4) % Baso % (Auto) 0.2 (0.2-1.2) % Lymph # (Auto) 1.18 (0.9-3.2) K/mm3 [place] # (Auto) 0.9 H (0.1-0.6) K/mm3 Eos # (Auto) 0.0 (0-0.3) K/mm3 Baso # (Auto) 0.0 (0.0-0.1) K/mm3 Abs Immat Gran (auto) 0.03 (0.00-0.031) K/mm3 Absolute Neuts (auto) 6.4 (1.3-6.7) K/mm3 Absolute Nucleated RBC 0.000 (0.0-0.012) K/mm3 Nucleated RBC % 0.0 (0.0-0.2) % PT 14.1 (11.1-14.7) Seconds INR 1.1 APTT 28.1 (22.3-36.8) Seconds Sodium 138 (137-145) mmol/L Potassium 3.9 (3.4-5.0) mmol/L Chloride 102 (98-107) mmol/L Carbon Dioxide 22 (22-30) mmol/L Anion Gap 14 H (4-12) mmol/L BUN 10 (7-17) mg/dL Creatinine 1.04 H (0.7-1.0) mg/dL Estim Creat Clear Calc 84 ml/min Estimated GFR > 60 (59 - ) Glucose 102 (65-110) mg/dL Lactic Acid 1.0 (0.7-2.0) mmol/L Calcium 9.9 (8.4-10.2) mg/dL Total Bilirubin 1.3 (0.2-1.3) mg/dL AST 27 (14-36) U/L ALT 21 (6-35) U/L Alkaline Phosphatase 83 (38-126) U/L C-Reactive Protein 4.2 H (<1.0) mg/dL Total Protein 9.1 H (6.3-8.2) g/dL Albumin 4.9 (3.5-5.1) g/dL Urine Color Dark yellow (Yellow) Urine Appearance Turbid H (Clear) Urine pH 6.0 (5.0-9.0) Ur Specific [place] 1.028 (1.001-1.035) Urine Protein 2+ H (Negative) mg/dL Urine Glucose (UA) Negative (Negative) mg/dL Urine Ketones 1+ H (Negative) mg/dL Ur Blood (Man) 2+ H (Negative) Urine Nitrate Negative (Negative) Urine Bilirubin 1+ H (Negative) Urine Urobilinogen 1.0 (<2.0) mg/dL Add Ur Microanalysis Reviewed Leukocyte Esterase Rfl 3+ H (Negative) DELONTE/UL Urine RBC 21-50 H (0-2) /hpf Urine WBC >100 H (0-3) /hpf Ur Squamous Epith Cells Many H (Few) /hpf Urine Bacteria 4+ H /hpf Urine Casts 3-5 Hyaline Casts Present (None) /lpf Urine Yeast (Budding) Present H (None) /hpf POC Urine HCG, Qual Negative (Negative) Urine Test Negative Imaging Data Attestation: I personally reviewed and interpreted this imaging study as follows: Radiologist's impression: ITS Impressions Abdomen/Pelvis CT 10/05/24 00:59 IMPRESSION: Mild esophagitis/gastritis. Splenomegaly. Biliary sludge and likely gallstones, without inflammatory changes to suggest cholecystitis. Otherwise unremarkable CT abdomen and pelvis findings. ECG Data EKG #1: Attestation: I personally reviewed and interpreted this ECG as follows: ECG completion date: 10/04/24 ECG completion time: 23:30 Prior ECG tracings: available for review tachycardia, sinus rhythm and no ST changes Discharge Plan Discharge Clinical Impression: Urinary tract infection Patient Disposition: Home Condition: Stable Instructions: Antibiotic Form, Urinary Tract Infection in Women (ED) Additional Instructions: Please return to the ER with any worsening symptoms. Follow-up with primary care provider to ensure your UTI has cleared. Take all medications as prescribed, including regularly scheduled medications. You may use Tylenol and ibuprofen together for pain control. Please remember to complete your full dose of antibiotics. Patient Language: Trinidadian Prescriptions: New levofloxacin 500 mg tablet 500 mg PO DAILY Qty: 7 0RF No Action Nexplanon 68 mg implant 1 implant subdermal ONCE Rx Instructions: as a single dose naproxen 500 mg tablet 500 mg PO BID PRN (Reason: pain) Qty: 60 0RF Follow-up/Referrals: Leisa So DO [Primary Care Provider] - Time of Disposition: 02:17
[2024-10-04] MEDS: SODIUM CHLORIDE 0.9% IV 1,000 ML 999 ML IV CONT ×3 (23:04→23:05)
[2024-10-04] MEDS: SODIUM CHLORIDE 0.9% IV 200 ML 999 ML IV CONT (23:05)
[2024-10-04] MEDS: cefTRIAXone 1 GM in SODIUM CHLORIDE 0.9% IV 50 ML 100 ML IVPB (23:06)
[2024-10-04 23:15] VITALS: BP 124/75; PULSE 105; RESP 25; O2SAT 100
[2024-10-04 23:27] LABS: Hematocrit 42.7 % (37.0-47.0); Hemoglobin 14.3 g/dL (12.0-15.0); Immature Granulocyte Percent A 0.4 % (0-0.5); Lymphocytes Absolute Auto 1.18 K/mm3 (0.9-3.2); Mean Corpuscular HGB Conc 33.5 g/dl (32-36); Mean Corpuscular Hemoglobin 29.0 pg (26-34); Mean Corpuscular Volume 86.6 fl (80-100); Nucleated Red Blood Cells Absolute Auto 0.000 K/mm3 (0.0-0.012); Nucleated Red Blood Cells Perc 0.0 % (0.0-0.2); Platelet Count Result 219 k/mm3 (150-375); Red Blood Count 4.93 M/mm3 (4.2-5.4); White Blood Count 8.6 K/mm3 (4.5-10.0)
[2024-10-04] MEDS: ACETAMINOPHEN 500 MG TABLET 1000 MG PO (23:30)
[2024-10-04 23:33] LABS: Pregnancy On Board Control Positive
[2024-10-04 23:39] LABS: Alanine Aminotransferase 21 U/L (6-35); Albumin Level 4.9 g/dL (3.5-5.1); Alkaline Phosphatase 83 U/L (38-126); Anion Gap 14 mmol/L (4-12); Aspartate Amino Transferase 27 U/L (14-36); Bilirubin,Total 1.3 mg/dL (0.2-1.3); Blood Urea Nitrogen 10 mg/dL (7-17); CRP 4.2 mg/dL (<1.0); Calcium 9.9 mg/dL (8.4-10.2); Carbon Dioxide 22 mmol/L (22-30); Chloride 102 mmol/L (98-107); Estimated CRCL calculation 84 ml/min; Estimated Glomerular Filt Rate > 60; Glucose 102 mg/dL (65-110); INR 1.1; Partial Thromboplastin Time 28.1 Seconds (22.3-36.8); Potassium 3.9 mmol/L (3.4-5.0); Prothrombin Time 14.1 Seconds (11.1-14.7); Sodium 138 mmol/L (137-145); Total Protein 9.1 g/dL (6.3-8.2)
[2024-10-05] MEDS: MORPHINE SULFATE (*CRX) 4 MG/ML INJ IV PUSH (00:03)
[2024-10-05 02:33] VITALS: BP 108/60; PULSE 89; RESP 18; O2SAT 100
[2024-10-05 02:55] VITALS: BP 106/65; PULSE 87; RESP 21; O2SAT 100
== END 2024-10-05 02:55 | disposition home or self-care (01) ==
PROVIDERS: Emergency Medicine; Emergency Provider Registered Nurse; PCP Family Medicine
DX: N39.0 Urinary tract infection, site not specified (principal); E66.01 Morbid (severe) obesity due to excess calories; Z68.41 Body mass index [BMI] 40.0-44.9, adult; K29.70 Gastritis, unspecified, without bleeding; K20.90 Esophagitis, unspecified without bleeding; R16.1 Splenomegaly, not elsewhere classified; R93.2 Abnormal findings on diagnostic imaging of liver and biliary tract
CPT/HCPCS: 36415; 74177; 80053; 81001; 81025; 83605; 85025; 85610; 85730; 86140; 93005; 96365; 96375; 99284; A9270; J0696; J2270; J7030; Q9967

== ENCOUNTER 2024-10-05 20:11 | Observation (INO) | payer OTHER, SELFPAY ==
--- NOTE | ~2024-10-05 | US_ITS ---
US abdomen limited INDICATION: Possible gallstones. PROCEDURE: Realtime right upper abdominal ultrasound. COMPARISON: CT dated 10/04/2024 FINDINGS: The pancreas is normal without focal mass or pancreatic ductal dilation. Liver echotexture is normal without focal mass or intrahepatic biliary dilatation. There is normal directional flow i n the portal vein. There are gallstones. No gallbladder wall thickening or pericholecystic fluid. Common bile duct fatuma ures 7 mm. No sonographic Goff's sign. IMPRESSION: 1: Cholelithiasis. Common bile duct upper normal. Reviewed, dictated and finalized at location A.
[2024-10-05 20:21] VITALS: BP 114/72; PULSE 130; RESP 20; TEMP 39.4; O2SAT 100
[2024-10-05 22:13] VITALS: BP 117/63; PULSE 123; RESP 18; TEMP 39.3; O2SAT 100
--- NOTE | 2024-10-05 22:22 | PC.NURSE ---
Pt provided with ice pack
--- NOTE | 2024-10-05 23:24 | ED_ITS ---
HPI - Nausea/Vomiting/Diarrhea General Chief complaint: Nausea/Vomiting/Diarrhea <Milly Moon APRN - Last Filed: 10/06/24 03:39> Stated complaint: N/V <Milly Moon APRN - Last Filed: 10/06/24 03:39> Time Seen by Provider: 10/05/24 23:24 <Milly Moon APRN - Last Filed: 10/06/24 03:39> History of Present Illness HPI Narrative: Patient is a 24-year-old female who presents to the ER with lower abdominal and CVA tenderness. She was seen in the ER last night for similar symptoms. Pt reports she started vomiting and has been unable to keep down any of her prescribed antibiotics. She reports she has had fevers at home and has been sleeping most of the day. From her HPI yesterday, pt reports she was diagnosed with a urinary tract infection on Tuesday and started on Macrobid. Patient has now been on oral antibiotics for 48 hours and her symptoms have worsened. She endorses fevers, chills, and urinary burning/urgency. Patient denies any chest pain, shortness of breath, lower extremity swelling, or vaginal discharge. She reports she does not get a menstrual period because she has a Nexplanon. Patient denies any medical history and does not take any daily medications. <Milly Moon APRN - Last Filed: 10/06/24 03:39> Related Data Home medications: Home Medications ?Medication ?Instructions ?Recorded ?Confirmed ?Last Taken ?Type etonogestrel 68 mg subdermal 1 implant subdermal ONCE 08/26/22 10/06/24 10/06/24 History implant (Nexplanon) nitrofurantoin 100 mg PO Q12H 10/06/24 10/06/24 Unknown History monohydrate/macrocrystals 100 mg capsule <Milly Moon APRN - Last Filed: 10/06/24 03:39> Allergies/Adverse reactions: Allergies Allergy/AdvReac Type Severity Reaction Status Date / Time No Known Allergies Allergy Verified 10/05/24 20:11 <Milly Moon APRN - Last Filed: 10/06/24 03:39> Review of Systems 2 Review of Systems: All systems reviewed & are unremarkable except as noted in HPI and below <Milly Moon APRN - Last Filed: 10/06/24 03:39> [facility] Past Medical History Medical History: Medical History Nexplanon insertion 08/26/2022 Morbid obesity with BMI of 45.0-49.9, adult <Milly Moon APRN - Last Filed: 10/06/24 03:39> Surgical History Surgical History: Surgical History S/P nasal surgery 10/2022 No pertinent past surgical history <Milly Moon APRN - Last Filed: 10/06/24 03:39> Family History Family History: Family History Sibling Mental disability Grandparent Metastatic adenocarcinoma Grandparent Heart disease Mother Cervical cancer <Milly Moon APRN - Last Filed: 10/06/24 03:39> Social History Social History: Social History Smoking status: Never smoker Second hand tobacco smoke exposure: No Alcohol intake: current Drinks per week: 1 Alcohol use details: 1-2 month Substance use: never Substance use type: does not use Do You Feel Safe in your Home?: Yes Lack of Transportation: No Lack of Food: Never True Current Housing: I Have Housing Concerned About Future Housing: No Difficulty Paying Gas/Electric Bills: No Difficulty Paying for Meds: No Currently Unemployed: No Education: High School Diploma/GED Difficulty w/ Childcare or Family Care: No Living arrangements: with family Additional living arrangements comments: single 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 HEAD: Normocephalic, atraumatic. NECK: Supple. No adenopathy, no masses. RESPIRATORY: Airway patent, respirations nonlabored. Clear to auscultation bilaterally, no rales, rhonchi, wheezing. CARDIOVASCULAR: Tachycardia without murmurs, rubs, or gallops. Peripheral pulses 2+ and equal bilaterally. ABDOMINAL: Soft, nontender, nondistended, no hepatosplenomegaly. Normoactive BS. MUSCULOSKELETAL: Moves all extremities. Strength/ROM intact without gross deformities. SKIN: Warm, dry, normal color. No rashes. NEURO: A&O X3. Speech clear. Cranial nerves II-XII intact. No ataxic movements. PSYCHIATRIC: Appropriate mood and affect. Normal interaction. <Milly Moon, ZULLY - Last Filed: 10/06/24 03:39> Course MANAGER INDUSTRIAL/PA Physician Supervision This visit was performed by both a physician and an APC. I performed all aspects of the MDM as documented. <Donato Zapata MD - Last Filed: 10/06/24 04:50> Vital Signs Vital signs: Vital Signs Temperature 39.4 C H 10/05/24 20:21 Pulse Rate 130 H 10/05/24 20:21 Respiratory Rate 20 10/05/24 20:21 Blood Pressure 114/72 10/05/24 20:21 Pulse Oximetry 100 10/05/24 20:21 Oxygen Delivery Room Air 10/05/24 20:21 Temperature 37.0 C 10/06/24 01:00 Pulse Rate 77 10/06/24 03:05 Respiratory Rate 18 10/06/24 03:05 Blood Pressure 112/64 10/06/24 03:05 Pulse Oximetry 94 10/06/24 03:05 Oxygen Delivery Room Air 10/05/24 20:21 <Milly Moon APRN - Last Filed: 10/06/24 03:39> Vital Signs Temperature 39.4 C H 10/05/24 20:21 Pulse Rate 130 H 10/05/24 20:21 Respiratory Rate 20 10/05/24 20:21 Blood Pressure 114/72 10/05/24 20:21 Pulse Oximetry 100 10/05/24 20:21 Oxygen Delivery Room Air 10/05/24 20:21 Temperature 37.0 C 10/06/24 01:00 Pulse Rate 77 10/06/24 03:05 Respiratory Rate 18 10/06/24 03:05 Blood Pressure 112/64 10/06/24 03:05 Pulse Oximetry 94 10/06/24 03:05 Oxygen Delivery Room Air 10/05/24 20:21 <Donato Zapata MD - Last Filed: 10/06/24 04:50> MDM - Nausea/Vomiting/Diarrhea MDM Narrative Medical decision making narrative: Patient is a 24-year-old female who presents to the ER with lower abdominal and CVA tenderness. She was seen in the ER last night for similar symptoms. Pt reports she started vomiting and has been unable to keep down any of her prescribed antibiotics. She reports she has had fevers at home and has been sleeping most of the day. Labs Ordered: CBC, CRP, CMP, beta hCG, lactic acid, blood cultures, UA Imaging Ordered: CT abdomen pelvis (yesterday) Medications Ordered: 3 L normal saline IV bolus, Rocephin 1 g IV, Zosyn 3.375 g IV, Zofran 4 mg IV, Tylenol p.o., morphine 4 mg IV Results: Patient's lab results were consistent with her lab results from yesterday. She continues to have a normal lactic acid and white blood cell count. Diagnosis: cystitis, failed outpatient oral antibiotic treatment Consults: general surgery (order placed, no call made) Patient Education/Shared MDM: Results of lab work shared with patient. She endorses improvement of symptoms following medication administration. It was advised patient be admitted to the hospital for further evaluation and treatment. Patient verbalizes understanding and is in agreement with plan. [id number]-Spoke with Dr. Castle, who is in agreement with plan for pt's admission to hospital. Patient will be admitted to the med/surg floor. General surgery will be consulted (order placed, no call made). An order will be placed for an abdominal ultrasound. Dr. Castle requested patient start on Zosyn IV. She will remain NPO at this time. <Milly Moon APRN - Last Filed: 10/06/24 03:39> Differential Diagnosis Differential diagnosis: Likely gastroenteritis, dehydration and other (Sepsis, cystitis, pyelonephritis, cholecystitis) <Milly Moon APRN - Last Filed: 10/06/24 03:39> Lab Data Attestation: I reviewed the patient's lab results. <Milly Morgan ZULLY Moon - Last Filed: 10/06/24 03:39> Result diagrams: 10/05/24 23:41 10/05/24 23:41 <Milly Morgan ZULLY Moon - Last Filed: 10/06/24 03:39> Labs: Lab Results 10/05/24 10/05/24 Range/Units 23:41 23:41 WBC 9.7 (4.5-10.0) K/mm3 RBC 4.63 (4.2-5.4) M/mm3 Hgb 13.6 (12.0-15.0) g/dL Hct 39.4 (37.0-47.0) % MCV 85.1 (80-100) fl MCH 29.4 (26-34) pg MCHC 34.5 (32-36) g/dl RDW 12.3 (11.5-14.5) % Plt Count 180 (150-375) k/mm3 MPV 9.3 (7.4-10.4) fl Immature Gran % (Auto) 0.3 (0-0.5) % Neut % (Auto) 74.5 H (45.5-73.1) % Lymph % (Auto) 16.2 L (18.3-44.2) % [place] % (Auto) 8.7 H (2.6-8.5) % Eos % (Auto) 0.0 (0-4.4) % Baso % (Auto) 0.3 (0.2-1.2) % Lymph # (Auto) 1.57 (0.9-3.2) K/mm3 [place] # (Auto) 0.8 H (0.1-0.6) K/mm3 Eos # (Auto) 0.0 (0-0.3) K/mm3 Baso # (Auto) 0.0 (0.0-0.1) K/mm3 Abs Immat Gran (auto) 0.03 (0.00-0.031) K/mm3 Absolute Neuts (auto) 7.2 H (1.3-6.7) K/mm3 Absolute Nucleated RBC 0.000 (0.0-0.012) K/mm3 Nucleated RBC % 0.0 (0.0-0.2) % Sodium 136 L (137-145) mmol/L Potassium 3.9 (3.4-5.0) mmol/L Chloride 105 (98-107) mmol/L Carbon Dioxide 17 L (22-30) mmol/L Anion Gap 14 H (4-12) mmol/L BUN 10 (7-17) mg/dL Creatinine 0.91 (0.7-1.0) mg/dL Estim Creat Clear Calc 94 ml/min Estimated GFR > 60 (59 - ) Glucose 110 (65-110) mg/dL Lactic Acid 1.0 (0.7-2.0) mmol/L Calcium 9.4 (8.4-10.2) mg/dL Total Bilirubin 1.3 (0.2-1.3) mg/dL AST 36 (14-36) U/L ALT 23 (6-35) U/L Alkaline Phosphatase 75 (38-126) U/L C-Reactive Protein 13.2 H 8.7 H (<1.0) mg/dL Total Protein 7.9 (6.3-8.2) g/dL Albumin 4.4 (3.5-5.1) g/dL Beta HCG, Quant < 2.39 mIU/ML <Milly Moon, CAMPAIGN MANAGEMENT SENIOR MANAGER - Last Filed: 10/06/24 03:39> Lab Results 10/05/24 10/05/24 Range/Units 23:41 23:41 WBC 9.7 (4.5-10.0) K/mm3 RBC 4.63 (4.2-5.4) M/mm3 Hgb 13.6 (12.0-15.0) g/dL Hct 39.4 (37.0-47.0) % MCV 85.1 (80-100) fl MCH 29.4 (26-34) pg MCHC 34.5 (32-36) g/dl RDW 12.3 (11.5-14.5) % Plt Count 180 (150-375) k/mm3 MPV 9.3 (7.4-10.4) fl Immature Gran % (Auto) 0.3 (0-0.5) % Neut % (Auto) 74.5 H (45.5-73.1) % Lymph % (Auto) 16.2 L (18.3-44.2) % [place] % (Auto) 8.7 H (2.6-8.5) % Eos % (Auto) 0.0 (0-4.4) % Baso % (Auto) 0.3 (0.2-1.2) % Lymph # (Auto) 1.57 (0.9-3.2) K/mm3 [place] # (Auto) 0.8 H (0.1-0.6) K/mm3 Eos # (Auto) 0.0 (0-0.3) K/mm3 Baso # (Auto) 0.0 (0.0-0.1) K/mm3 Abs Immat Gran (auto) 0.03 (0.00-0.031) K/mm3 Absolute Neuts (auto) 7.2 H (1.3-6.7) K/mm3 Absolute Nucleated RBC 0.000 (0.0-0.012) K/mm3 Nucleated RBC % 0.0 (0.0-0.2) % Sodium 136 L (137-145) mmol/L Potassium 3.9 (3.4-5.0) mmol/L Chloride 105 (98-107) mmol/L Carbon Dioxide 17 L (22-30) mmol/L Anion Gap 14 H (4-12) mmol/L BUN 10 (7-17) mg/dL Creatinine 0.91 (0.7-1.0) mg/dL Estim Creat Clear Calc 94 ml/min Estimated GFR > 60 (59 - ) Glucose 110 (65-110) mg/dL Lactic Acid 1.0 (0.7-2.0) mmol/L Calcium 9.4 (8.4-10.2) mg/dL Total Bilirubin 1.3 (0.2-1.3) mg/dL AST 36 (14-36) U/L ALT 23 (6-35) U/L Alkaline Phosphatase 75 (38-126) U/L C-Reactive Protein 13.2 H 8.7 H (<1.0) mg/dL Total Protein 7.9 (6.3-8.2) g/dL Albumin 4.4 (3.5-5.1) g/dL Beta HCG, Quant < 2.39 mIU/ML <Donato Zapata MD - Last Filed: 10/06/24 04:50> Discharge Plan Discharge Clinical Impression: Cystitis, Failure of outpatient treatment, Nausea & vomiting <Milly Moon APRN - Last Filed: 10/06/24 03:39> Patient Disposition: Still a Patient <Milly Moon APRN - Last Filed: 10/06/24 03:39> Condition: Stable <Milly Moon APRN - Last Filed: 10/06/24 03:39>
[2024-10-05 23:51] LABS: Hematocrit 39.4 % (37.0-47.0); Hemoglobin 13.6 g/dL (12.0-15.0); Immature Granulocyte Percent A 0.3 % (0-0.5); Lymphocytes Absolute Auto 1.57 K/mm3 (0.9-3.2); Mean Corpuscular HGB Conc 34.5 g/dl (32-36); Mean Corpuscular Hemoglobin 29.4 pg (26-34); Mean Corpuscular Volume 85.1 fl (80-100); Nucleated Red Blood Cells Absolute Auto 0.000 K/mm3 (0.0-0.012); Nucleated Red Blood Cells Perc 0.0 % (0.0-0.2); Platelet Count Result 180 k/mm3 (150-375); Red Blood Count 4.63 M/mm3 (4.2-5.4); White Blood Count 9.7 K/mm3 (4.5-10.0)
[2024-10-05] MEDS: ACETAMINOPHEN 500 MG TABLET 1000 MG PO (23:51)
[2024-10-05] MEDS: ONDANSETRON INJ 4 MG/2 ML VIAL IV PUSH (23:52)
[2024-10-05] MEDS: cefTRIAXone 1 GM in SODIUM CHLORIDE 0.9% IV 50 ML 100 ML IVPB (23:52)
[2024-10-05] MEDS: SODIUM CHLORIDE 0.9% IV 1,000 ML 999 ML IV CONT (23:53)
[2024-10-06] MEDS: MORPHINE SULFATE (*CRX) 4 MG/ML INJ IV PUSH (00:03)
[2024-10-06] MEDS: SODIUM CHLORIDE 0.9% IV 1,000 ML 999 ML IV CONT ×2 (00:07→00:58)
[2024-10-06 00:16] LABS: CRP 8.7 mg/dL (<1.0)
[2024-10-06 00:18] LABS: Alanine Aminotransferase 23 U/L (6-35); Albumin Level 4.4 g/dL (3.5-5.1); Alkaline Phosphatase 75 U/L (38-126); Anion Gap 14 mmol/L (4-12); Aspartate Amino Transferase 36 U/L (14-36); Bilirubin,Total 1.3 mg/dL (0.2-1.3); Blood Urea Nitrogen 10 mg/dL (7-17); Calcium 9.4 mg/dL (8.4-10.2); Carbon Dioxide 17 mmol/L (22-30); Chloride 105 mmol/L (98-107); Estimated CRCL calculation 94 ml/min; Estimated Glomerular Filt Rate > 60; Glucose 110 mg/dL (65-110); Potassium 3.9 mmol/L (3.4-5.0); Sodium 136 mmol/L (137-145); Total Protein 7.9 g/dL (6.3-8.2)
[2024-10-06 00:28] LABS: CRP 13.2 mg/dL (<1.0)
--- OUTSIDE RECORDS SUMMARY | 2024-10-06 00:33 | XMS_ITS | Data Portability ---
Author Organization DONOVAN ISAURAMinna Bonilla Address [address] [facility] [place] [address] Assessment No assessment recorded. Plan of Treatment Reminders Order Date Submit Date Provider Last Modified By Organization Details Last Modified Time Details Appointments None recorded. Lab PPD (purified protein derivative ), skin test 2019 020 ALESHIA In-Office Order, Internal Use Only DO Not Attach Compendium DO Not Attach Compendium, Do Not Delete/merge, [id number] 0 12:15:42 Referral None recorded. Procedures None recorded. Surgeries None recorded. Imaging CT, sinuses, w/o contrast 2020 021 [facility] ([facility]), [address] [place], [address], 1 11:29:43 Medication Orders levocetiri zine 5 mg tablet 2020 021 INTERFACE [facility] #[id number], [address] , [place], [place], [id number], 1 12:01:34 Tubersol 5 tub. unit/0.1 mL intraderma l injection solution 2019 020 [facility] #[id number], [address] [place], [place], [id number], 1 10:50:05 Tubersol 5 tub. unit/0.1 mL intraderma l injection solution 2019 020 [facility] #[id number], [address], [place], [place], [id number], 1 10:50:05 Patient TargetsNo targets recorded. Patient Instructions Encounter Date Encounter Id Patient Instructions Last Modified By Organization Details Last Modified Time 11/30/2019 [id number] learning about tuberculosis (TB) [email or web address] Not available 12/03/2019 09:41:31 Reason for Referral None Reported. Results Created Date Observation Date Name Description Value Unit Range Abnormal Flag Note LastModifiedBy Organization Detail LastModifiedTime 12/10/1912/10/2019 PPD (jennifer fied prote in deriv ative ), skin test Result Negati ve Not Available In-Office Order Internal Use Only DO Not Attach Compendium DO Not Attach Compendium, Do Not Delete/merge, [id number] 12/03/2019 09:37:40 Result Notes None recorded. Problems Name Problem SNOMED Code Status Onset Date Resolution Date Notes Provider Name and Address Organization Details Recorded Time Allergic rhinitis 34808101 Active 2020 Jacob Jackson MD Attn: Luke gunn,[address] [place], [address], [place] [facility] 1 11:55:12 Enlarged tonsil 983905441 Active 2020 Jacob Jackson MD Attn: Luke gunn,[address] [place], [address], [place] 1 11:55:56 History of SARS-CoV- 2 773560725745 796578 Active 2020Mar 2020 Jacob Jackson MD Attn: Luke gunn,[address] [place], [address], [place] 1 11:57:28 History of asthma 785822740 Active 2020 Exercise induced Jacob Jackson MD Attn: Luke gunn,[address] [place], [address], [place] [facility] 1 12:02:13 Problem Notes None recorded. Medical Equipment None Reported. Allergies No known drug allergies Medications Name Sig Start Date Stop Date Status Note LastModified by Organization Details LastModified Time Tubersol 5 tub. 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 17 g 98.1 [degF] 90 /min 92 % 92 % 114/76 mm[Hg] Nubia Sebastian MA [facility] 1 11:13:52 Date Recorded Body weight Heart rate Body temperature Oxygen saturation Oxygen saturation in Arterial blood by Pulse oximetry Body mass index (BMI) Body mass index (BMI) [Percentile] Per age and sex Body height Systolic And Diastolic Provider Name and Address Organization Details Last Updated DateTime 0 614209. 68 g 111 /min 97.6 [degF] 98 % 98 % 45.9 kg/m2 99 % 157.48 cm 102/68 mm[Hg] Licha Camarena MA [facility] 0 10:41:24 Date Recorded Body height Body temperature Provider N kait and Address Organization Details Last Updated DateTime 12/10/2019 157.48 cm 97.6 [degF] Mamie Vargas MA [facility] 12/10/2019 12:40:31 Social History None recorded. Functional Status None recorded. Mental Status None recorded. Family History Nothing Reported. Medical History No medical history recorded. Gynecological HistoryNo gynecological history recorded. Obstetrics History GPAL:G 0 P 0 0 0 0 Immunizations Vaccine Type Date Status Note Provider Nam e and Address Organization Details Recorded Time IPV 5 completed Genevieve Fallon RN null, [facility] 01/02/2020 12:42:46 IPV 0 completed Genevieve Fallon RN null, [facility] 01/02/2020 12:42:59 IPV 0 completed Genevieve Fallon [...] mL dose 1 completed Isaura Chávez null, [place] [facility] 08/19/2020 14:12:00 Tdap 0 completed Licha Migue RICCI null, [facility] 12/03/2019 09:41:31 Past Encounters Encounter ID Performer Location Encounter Start Date Encounter Closed Date Diagnosis/Indication Diagnosis SNOMED-CT Code Diagnosis ICD10 Code Diagnosis Note [id number] Staci Araujo [facility] e FP (DOT 104) [address] [place] [address] 11/30/2019 10:29:42 12/03/2019 11:44:01 History and physical examination, [facility] 98199643 Z02.0 negative assessment . no restrictio ns indicated. denies asthma, heart disease and sickle cell. Active or passive immunization 445414723 Z23 tdap given per ma per vo. not due until 08/2020. pt states she would like to get it over with Tuberculos is screening 674570842 Z11.1 ppd given per ma per vo. for completion of 2 step ppd, pt to return on 12/02, 12/09 and 12/11. [id number] [facility] [address] [place] [address] 12/10/2019 12:15:40 12/11/2019 08:14:19 Tuberculosis screening 087148651 Z11.1 ppd given per ma per vo. for completion of 2 step ppd, pt to return on 12/02, 12/09 and 12/11. [id number] Jacob Jackson MD [facility] (Adult Med) [address] [place] [address] 04/16/2020 10:28:39 04/17/2020 11:05:57 Allergic rhinitis 90178251 J30.9 Enlarged tonsil 70264594 2 J35.1 History of asthma 549194 007 Z87.09 Health Concerns Section Related Observation [...] 02/19/2020 (MEDICAID REPLACEMENT - HMO) Sunita Fan [id number] Sunita Fan 11/30/2019 [facility] ADULT BASIC EDUC[facility] Sunita Fan [id number] Sunita Prescott 04/11/2020 1 [facility] (MEDICAID HMO) Sunita Santanas [id number] Sunita Fan Notes Date Note Type Note Provider Name and Address Organization Details Recorded Time 11/30/2019 text/html Pt presents to clinic requesting school physical. She denies nausea, vomiting, fever, chills, diarrhea, rash, cough, SOB, JIMÉNEZ, constipation and dysuria. RICCI Cordero, [facility] 12/03/2019 09:41:58 04/16/2020 text/html Has chronic rhinitis most of her life. 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 She did have Covid-19 infection one month ago. She has had exercise-induced asthma as a teenager. Jacob Jackson MD Attn: [address] [place], [address], [facility] 04/16/2020 12:03:50 OBGyn Episode No OBEpisode recorded.
[2024-10-06 01:00] VITALS: BP 110/77; PULSE 91; RESP 16; TEMP 37; O2SAT 99
[2024-10-06 01:34] LABS: Beta HCG Quantitative < 2.39 mIU/ML
[2024-10-06] MEDS: SODIUM CHLORIDE 0.9% IV 200 ML 999 ML IV CONT (01:57)
[2024-10-06] MEDS: PIPERACILLIN/TAZOBACTAM SOD 3.375 GM in SODIUM CHLORIDE 0.9% IV 50 ML 100 ML IVPB ×4 (01:57→20:06)
[2024-10-06 03:05] VITALS: BP 112/64; PULSE 77; RESP 18; O2SAT 94
--- NOTE | 2024-10-06 03:11 | PC.NURSE ---
Assumed care of patient after receiving bedside report from JOSE Horton @ [phone].
[2024-10-06 03:33] LABS: Add Urine Microscopic? YES; Appearance Urine Clear (Clear); Glucose Urine UA Negative (Negative); Leukocyte Esterase Ur 2+ LEU/UL (Negative); Nitrate Urine Negative (Negative); Non Pathogenic Casts 0-2; Specific Grav Ur 1.015 (1.001-1.035)
[2024-10-06 03:35] VITALS: BMI 44.1
--- NOTE | 2024-10-06 03:37 | ADMGEN ---
This patient, Sunita Fan, was admitted to 2 Medical Room 241-. Patient/family oriented to hospital policies and general routines including ID bracelet, bed and alarms, visiting hours, pain management, procedures, bathroom and other care routines, personal items, smoking policy, room service/diet, and visiting hours. Information on how to activate the Rapid Response Team has been discussed. Patient/Family are encouraged to report perceived risks to care and to ask questions if they do not understand what they are told or what they should do.
[2024-10-06 03:46] LABS: Influenza A QL RT-PCR Negative (Negative); Influenza B QL RT-PCR Negative (Negative); RSV RNA, RT-PCR Negative (Negative); SARS-CoV-2 RNA PCR Negative (Negative)
[2024-10-06 03:59] LABS: Cannabinoid Screen Urine Positive (Negative)
[2024-10-06] MEDS: SODIUM CHLORIDE 0.9% IV 1,000 ML 125 ML IV CONT ×2 (03:59→13:09)
[2024-10-06 04:33] LABS: Trichomonas Vag PCR NOT DETECTED (NOT DETECTE)
[2024-10-06 05:15] LABS: Hematocrit 31.9 % (37.0-47.0); Hemoglobin 10.7 g/dL (12.0-15.0); Immature Granulocyte Percent A 0.3 % (0-0.5); Lymphocytes Absolute Auto 1.67 K/mm3 (0.9-3.2); Mean Corpuscular HGB Conc 33.5 g/dl (32-36); Mean Corpuscular Hemoglobin 29.3 pg (26-34); Mean Corpuscular Volume 87.4 fl (80-100); Nucleated Red Blood Cells Absolute Auto 0.000 K/mm3 (0.0-0.012); Nucleated Red Blood Cells Perc 0.0 % (0.0-0.2); Platelet Count Result 141 k/mm3 (150-375); Red Blood Count 3.65 M/mm3 (4.2-5.4); White Blood Count 6.3 K/mm3 (4.5-10.0)
[2024-10-06 05:33] LABS: Alanine Aminotransferase 15 U/L (6-35); Albumin Level 3.2 g/dL (3.5-5.1); Alkaline Phosphatase 53 U/L (38-126); Anion Gap 7 mmol/L (4-12); Aspartate Amino Transferase 29 U/L (14-36); Bilirubin,Total 0.8 mg/dL (0.2-1.3); Blood Urea Nitrogen 9 mg/dL (7-17); Calcium 7.9 mg/dL (8.4-10.2); Carbon Dioxide 19 mmol/L (22-30); Chloride 111 mmol/L (98-107); Estimated CRCL calculation 110 ml/min; Estimated Glomerular Filt Rate > 60; Glucose 93 mg/dL (65-110); Magnesium 1.9 mg/dL (1.6-2.3); Potassium 3.6 mmol/L (3.4-5.0); Sodium 137 mmol/L (137-145); Total Protein 6.1 g/dL (6.3-8.2)
[2024-10-06 06:00] VITALS: BP 100/52; PULSE 70; RESP 18; TEMP 36.9; O2SAT 98
--- NOTE | 2024-10-06 06:49 | PM.IMHP ---
H&P: HPI History of Present Illness Date/Time: 10/06/24 06:49 Chief Complaint: Nausea/vomiting/abdominal pain Narrative: Sunita Fan is a 24-year-old female with a pmhx of Nexplanon insertion who presents to the hospital for right lower abdominal and right lower flank tenderness for the past 4 days. She was seen by an urgent care on Tuesday and prescribed Macrobid but the symptoms continued to worsen. She was seen here on evening in the emergency department for similar issue, however at the time she was presenting with bilateral lower abdominal and bilateral flank pain. She was sent home with treatment for cystitis but continued to get worse until she came in Tuesday (10/05) evening for worsening abdominal and flank pain. Now she is presenting with abdominal pain more located in the right lower quadrant and right-sided flank pain. Describes it as sharp and constant without any alleviating or aggravating factors. She also endorses burning with urination as well as increased frequency. Also endorses nausea, emesis, subjective fevers and chills at home. She has been unable to keep down the antibiotics that she was discharged on due to the nausea and vomiting. Denies any chest pain, shortness of breath, vaginal discharge. Has Nexplanon, LKMP 03/12. Denies any pertinent medical history or medication use. Sexually active, denies alcohol or drug abuse. In ED: 114/72, 77 HR, 18RR, 94% on RA WBC 9.7, Hgb 13.6, Hct 39.4, Plt 180, gluose 110 Na 136, K 3.9, BUN 10, Cr 0.91, Lactic Acid 1.0, Ca 9.4, LFTs wnl, CRP 13.2 -> 8.7 Beta HCG, <2.39 Abd/Pelvis CT (10/05/2024): Mild esophagitis/gastritis. Splenomegaly. Biliary sludge and likely gallstones, without inflammatory changes to suggest cholecystitis. Otherwise unremarkable CT abdomen and pelvis findings. Review of Systems Review of Systems: All systems reviewed & are unremarkable except as noted in HPI and below PMFSH Past Medical History Medical History Nexplanon insertion 08/26/2022 Morbid obesity with BMI of 45.0-49.9, adult Surgical History Surgical History S/P nasal surgery 10/2022 No pertinent past surgical history Family History Family History Sibling Mental disability Grandparent Metastatic adenocarcinoma Grandparent Heart disease Mother Cervical cancer Social History Social History Smoking status: Never smoker Second hand tobacco smoke exposure: No Alcohol intake: current Drinks per week: 1 Alcohol use details: 1-2 month Substance use: never Substance use type: does not use Do You Feel Safe in your Home?: Yes Lack of Transportation: No Lack of Food: Never True Current Housing: I Have Housing Concerned About Future Housing: No Difficulty Paying Gas/Electric Bills: No Difficulty Paying for Meds: No Currently Unemployed: No Education: High School Diploma/GED Difficulty w/ Childcare or Family Care: No Living arrangements: with family Additional living arrangements comments: single Occupation/Education: occupation 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 Gender identity (if verbalized by the patient): Female Sexual Orientation (if Verbalized by the Patient): Straight or Heterosexual Spiritual care concerns: No Meds Home Medications and Allergies Home Medications ?Medication ?Instructions ?Recorded ?Confirmed ?Type etonogestrel 68 mg subdermal 1 implant subdermal ONCE 08/26/22 10/06/24 History implant (Nexplanon) nitrofurantoin 100 mg PO Q12H 10/06/24 10/06/24 History monohydrate/macrocrystals 100 mg capsule Allergies Allergy/AdvReac Type Severity Reaction Status Date / Time No Known Allergies Allergy Verified 10/05/24 20:11 Vital Signs Vital Signs - 24 hr 10/05/24 20:21 10/05/24 22:13 10/06/24 01:00 Temperature 103 F H 102.8 F H 98.6 F Pulse Rate 130 H 123 H 91 Respiratory Rate 20 18 16 Blood Pressure 114/72 117/63 110/77 Pulse Oximetry 100 100 99 Oxygen Delivery Room Air 10/06/24 03:05 10/06/24 06:00 Temperature 98.4 F Pulse Rate 77 70 Respiratory Rate 18 18 Blood Pressure 112/64 100/52 L Pulse Oximetry 94 98 Oxygen Delivery Exam Narrative: Gen - well appearing female in no acute respiratory distress who is nontoxic-appearing lying semi recumbent in bed HEENT - normocephalic. Atraumatic. Pupils equal round and reactive. Sclera clear and anicteric. Nares patent. Oropharynx was clear. Moist mucous membranes. Neck - neck was supple. No dominant adenopathy, thyromegaly or masses. 2+ carotid upstrokes without bruits. Chest - lungs are clear to auscultation bilaterally. No wheezes or crackles. CV - heart was regular rate and rhythm. S1-S2. No murmurs gallops or rubs. Abd - RLQ and RUQ tenderness to palpation. No guarding. + Right CVA tenderness, no left sided CVA tenderness. Abdomen was soft. Nondistended. Positive bowel sounds. No organomegaly or masses. Ext - no clubbing, cyanosis or edema. 2+ DP pulses bilaterally. Neuro - patient is alert and oriented x4. Strength is 5/5 in both upper and lower extremities. Speech is clear. Psych - normal mood and affect. Patient is pleasant and cooperative. Skin - warm and dry. No rashes noted. H&P: Results Labs Labs: Short CBC 10/05/24 10/06/24 Range/Units 23:41 04:49 WBC 9.7 6.3 (4.5-10.0) K/mm3 Hgb 13.6 10.7 L (12.0-15.0) g/dL Hct 39.4 31.9 L (37.0-47.0) % Plt Count 180 141 L (150-375) k/mm3 [facility] 10/05/24 10/06/24 23:41 04:49 Sodium 136 L 137 Potassium 3.9 3.6 Chloride 105 111 H Carbon Dioxide 17 L 19 L BUN 10 9 Creatinine 0.91 0.79 Glucose 110 93 Calcium 9.4 7.9 L Liver Function 10/05/24 10/06/24 Range/Units 23:41 04:49 Total Bilirubin 1.3 0.8 (0.2-1.3) mg/dL AST 36 29 (14-36) U/L ALT 23 15 (6-35) U/L Alkaline Phosphatase 75 53 (38-126) U/L Albumin 4.4 3.2 L (3.5-5.1) g/dL Urine 10/06/24 Range/Units 03:19 Urine Color Yellow (Yellow) Urine Appearance Clear (Clear) Urine pH 5.5 (5.0-9.0) Ur Specific [place] 1.015 (1.001-1.035) Urine Protein 2+ H (Negative) mg/dL Urine Glucose (UA) Negative (Negative) mg/dL Assessment and Plan Assessment and plan (1) Pyelonephritis: Code(s): N12 - Tubulo-interstitial nephritis, not specified as acute or chronic Status: Acute Assessment and Plan: Abd/pelvic CT (10/05/24): Mild esophagitis/gastritis. Splenomegaly. Biliary sludge and likely gallstones, without inflammatory changes to suggest cholecystitis. Otherwise unremarkable CT abdomen and pelvis findings. Endorsing fevers/chills at home, now presenting with Right CVA tenderness UA: 2+ protein, 2+ ketones, 1+ blood, 2+ leukocyte esterase, 6-10 RBC, > 100 WBC UC obtained on 10/05 No previous microscopy started on Zosyn for abnormal CT findings, will add on ceftriaxone (2) Nausea & vomiting: Code(s): R11.2 - Nausea with vomiting, unspecified Status: Acute Assessment and Plan: Likely secondary to above P.r.n. Zofran Pepcid 20 mg IV q.12 hours (3) Abnormal abdominal CT scan: Code(s): R93.5 - Abnormal findings on diagnostic imaging of other abdominal regions, including retroperitoneum Status: Acute Assessment and Plan: CT Abd/pelvis: Mild esophagitis/gastritis. Splenomegaly. Biliary sludge and likely gallstones, without inflammatory changes to suggest cholecystitis. Abdomen ultrasound: Cholelithiasis. Common bile duct upper normal. General surgery consult, appreciate further recommendations Monitor vital signs, I and O's, check stool output, neuro status and patient is a fall risk Monitor serum electrolytes and CBC Monitor lactic acid Consider ERCP if necessary Quality VTE Prophylaxis VTE prophylaxis: mechanical ordered
[2024-10-06] MEDS: FAMOTIDINE 20 MG/2 ML VIAL IV PUSH ×2 (08:41→20:08)
[2024-10-06 14:00] VITALS: BP 111/64; PULSE 95; RESP 18; TEMP 36.6; O2SAT 100
--- NOTE | 2024-10-06 15:20 | P.CONGS_ITS ---
Assessment and Plan Assessment and plan (1) Pyelonephritis: Code(s): N12 - Tubulo-interstitial nephritis, not specified as acute or chronic Status: Acute Assessment and Plan: I believe this is the cause of her admission. Probably affecting the right kidney. Continue IV antibiotics and converting to oral antibiotics when appropriate. I would also recommend discontinuing 1 of the 2 antibiotics. Either 1 should effectively treat this condition. (2) Cholelithiasis with chronic cholecystitis: Qualifiers: Cholelithiasis location: gallbladder Biliary obstruction: without biliary obstruction Qualified Code(s): K80.10 - Calculus of gallbladder with chronic cholecystitis without obstruction Code(s): K80.10 - Calculus of gallbladder with chronic cholecystitis without obstruction Status: Chronic Assessment and Plan: Patient likely experiencing episodes of chronic cholecystitis. She definitely has gallstones but I do not feel that cholecystitis is contributing to her present illness. I have explained to her that large meals or fatty foods can trigger these epigastric and right upper quadrant pains that she has experienced in the past. I also explained that, while these may be the only presentation for a while, there is no guarantee that she will not have more severe pain or complications of chronic cholecystitis with gallstones. Her mother had gallbladder disease and cholecystectomy. I advised her to follow up with me in the office electively to evaluate further and discuss cholecystectomy. No surgery needed at the present time. I will sign off. History of Present Illness Consult details Consult date: 10/06/24 Reason for consult: gallstones Requesting physician: Milly Moon APRN Narrative: Patient started having problems about 5 days ago when she noticed dysuria. She was started on Macrobid but her symptoms actually got worse. She started having fever and chills with the dysuria. She went to the emergency room on October 04, 2 days ago. Her urinalysis did have many squamous cells but also bacteria and white cells. She was felt to have a urinary tract infection and was given a prescription for Levaquin. While in the emergency room, she had a CT scan of the abdomen and pelvis which showed gallstones and sludge but no evidence of cholecystitis. She had a white blood cell count of 9700. 24 hours later after this emergency room visit she was having pain in the CVA area continued fevers and chills with dysuria and urgency. She she noticed diffuse abdominal pain and also started vomiting. She was also very sleepy. She came back to the emergency room last night. She was noted to have a temperature of 39.4? centigrade and heart rate of 130 on her initial presentation. She had abdominal tenderness and pain in the right costovertebral angle. She has been admitted and received fluid resuscitation. She is currently on Zosyn and Rocephin intravenously. She feels much better but still has some back pain, mostly on the right side and also continues to have some abdominal pain, again mostly on the right side. I was asked to see the patient regarding possibly having cholecystitis as a cause of her present illness. Patient denies any right upper quadrant or epigastric pain. When I questioned her more fully, she does note that sometimes after large meals such as at holidays, she will experience epigastric and right upper quadrant mild to moderate pain. Sometimes she can have some nausea with this. Her mother had gallbladder disease and cholecystectomy. She is not currently experiencing any of these symptoms at this time. Review of Systems 2 Review of Systems: All systems reviewed & are unremarkable except as noted in HPI and below (HPI) Constitutional: Constitutional: Reports chills and Reports fever(s) Gastrointestinal: Gastrointestinal: Reports as per HPI Genitourinary: Genitourinary: Reports as per HPI [facility] Past Medical History Medical History Nexplanon insertion 08/26/2022 Morbid obesity with BMI of 45.0-49.9, adult Surgical History Surgical History S/P nasal surgery 10/2022 No pertinent past surgical history Family History Family History Sibling Mental disability Grandparent Metastatic adenocarcinoma Grandparent Heart disease Mother Cervical cancer Social History Social History Smoking status: Never smoker Second hand tobacco smoke exposure: No Alcohol intake: current Drinks per week: 1 Alcohol use details: 1-2 month Substance use: never Substance use type: does not use Do You Feel Safe in your Home?: Yes Lack of Transportation: No Lack of Food: Never True Current Housing: I Have Housing Concerned About Future Housing: No Difficulty Paying Gas/Electric Bills: No Difficulty Paying for Meds: No Currently Unemployed: No Education: High School Diploma/GED Difficulty w/ Childcare or Family Care: No Living arrangements: with family Additional living arrangements comments: single Occupation/Education: occupation 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 Gender identity (if verbalized by the patient): Female Sexual Orientation (if Verbalized by the Patient): Straight or Heterosexual Spiritual care concerns: No Meds Home Medications and Allergies Home Medications ?Medication ?Instructions ?Recorded ?Confirmed ?Type etonogestrel 68 mg subdermal 1 implant subdermal ONCE 08/26/22 10/06/24 History implant (Nexplanon) nitrofurantoin 100 mg PO Q12H 10/06/24 10/06/24 History monohydrate/macrocrystals 100 mg capsule Allergies Allergy/AdvReac Type Severity Reaction Status Date / Time No Known Allergies Allergy Verified 10/05/24 20:11 Vital Signs Vital Signs - 24 hr 10/05/24 20:21 10/05/24 22:13 10/06/24 01:00 Temperature 39.4 C H 39.3 C H 37.0 C Pulse Rate 130 H 123 H 91 Respiratory Rate 20 18 16 Blood Pressure 114/72 117/63 110/77 Pulse Oximetry 100 100 99 Oxygen Delivery Room Air 10/06/24 03:05 10/06/24 06:00 10/06/24 14:00 Temperature 36.9 C 36.6 C Pulse Rate 77 70 95 Respiratory Rate 18 18 18 Blood Pressure 112/64 100/52 L 111/64 Pulse Oximetry 94 98 100 Oxygen Delivery Exam 2 Const: General: cooperative, comfortable, no acute distress, alert, awake and well groomed Orientation/consciousness: patient oriented x3 and No confusion HENMT: Head: normocephalic and atraumatic Mouth: Yes Normal oral and palatal mucosa present Eyes: Conjunctivae: conjunctivae normal Pupils: Equal, round and reactive pupils present EOM: EOMs intact bilaterally Neck: Neck: normal visual inspection, no lymphadenopathy and nontender Resp: Effort & Inspection: normal respiratory effort Auscultation: clear to auscultation bilaterally Cardio: Rate: regular rate Rhythm: regular rhythm Heart sounds: no gallops, no murmurs and no rubs GI: Inspection: normal to inspection, non-distended and obesity GI Palp: Y es Soft to palpation, Yes Tenderness to palpation present (GI) (Right side of abdomen, upper and lower quadrants), No Hepatomegaly present, No Splenomegaly present, No Hernia present and No Palpable mass present : General: Yes CVA tenderness on the right Skin: Lesions: no lesions Rashes: no rashes Neuro: General: no focal motor deficits and CN's II-XI intact bilaterally C ranial nerves: Yes Equal, round and reactive pupils present, Yes Bilaterally intact EOM present, Yes facial symmetry and Yes Midline tongue present S peech: normal speech Motor exam (neuro): 5/5 motor strength present throughout and Motor abnormalities not present Extrem: General: no clubbing, cyanosis or edema and edema Psych: Affect: normal affect Thought process: Normal thought process present Insight: Good insight present (Psych) Results Labs 10/06/24 04:49 10/06/24 04:49 Labs: Abnormal lab results 10/05/24 10/05/24 10/06/24 Range/Units 23:41 23:41 03:19 RBC (4.2-5.4) M/mm3 Hgb (12.0-15.0) g/dL Hct (37.0-47.0) % Plt Count (150-375) k/mm3 Neut % (Auto) 74.5 H (45.5-73.1) % Lymph % (Auto) 16.2 L (18.3-44.2) % [place] % (Auto) 8.7 H (2.6-8.5) % [place] # (Auto) 0.8 H (0.1-0.6) K/mm3 Absolute Neuts (auto) 7.2 H (1.3-6.7) K/mm3 Sodium 136 L (137-145) mmol/L Chloride (98-107) mmol/L Carbon Dioxide 17 L (22-30) mmol/L Anion Gap 14 H (4-12) mmol/L Calcium (8.4-10.2) mg/dL C-Reactive Protein 13.2 H 8.7 H (<1.0) mg/dL Total Protein (6.3-8.2) g/dL Albumin (3.5-5.1) g/dL Urine Protein 2+ H (Negative) mg/dL Urine Ketones 2+ H (Negative) mg/dL Ur Blood (Man) 1+ H (Negative) Leukocyte Esterase Rfl 2+ H (Negative) DELONTE/UL Urine RBC 6-10 H (0-2) /hpf Urine WBC >100 H (0-3) /hpf Urine Opiates Screen Positive A (Negative) U Cannabinoids Screen Positive A (Negative) 10/06/24 Range/Units 04:49 RBC 3.65 L (4.2-5.4) M/mm3 Hgb 10.7 L (12.0-15.0) g/dL Hct 31.9 L (37.0-47.0) % Plt Count 141 L (150-375) k/mm3 Neut % (Auto) (45.5-73.1) % Lymph % (Auto) (18.3-44.2) % [place] % (Auto) 10.7 H (2.6-8.5) % [place] # (Auto) 0.7 H (0.1-0.6) K/mm3 Absolute Neuts (auto) (1.3-6.7) K/mm3 Sodium (137-145) mmol/L Chloride 111 H (98-107) mmol/L Carbon Dioxide 19 L (22-30) mmol/L Anion Gap (4-12) mmol/L Calcium 7.9 L (8.4-10.2) mg/dL C-Reactive Protein (<1.0) mg/dL Total Protein 6.1 L (6.3-8.2) g/dL Albumin 3.2 L (3.5-5.1) g/dL Urine Protein (Negative) mg/dL Urine Ketones (Negative) mg/dL Ur Blood (Man) (Negative) Leukocyte Esterase Rfl (Negative) DELONTE/UL Urine RBC (0-2) /hpf Urine WBC (0-3) /hpf Urine Opiates Screen (Negative) U Cannabinoids Screen (Negative) Diabetes panel 10/05/24 10/06/24 Range/Units 23:41 04:49 Sodium 136 L 137 (137-145) mmol/L Potassium 3.9 3.6 (3.4-5.0) mmol/L Chloride 105 111 H (98-107) mmol/L Carbon Dioxide 17 L 19 L (22-30) mmol/L BUN 10 9 (7-17) mg/dL Creatinine 0.91 0.79 (0.7-1.0) mg/dL Glucose 110 93 (65-110) mg/dL Calcium 9.4 7.9 L (8.4-10.2) mg/dL AST 36 29 (14-36) U/L ALT 23 15 (6-35) U/L Alkaline Phosphatase 75 53 (38-126) U/L Total Protein 7.9 6.1 L (6.3-8.2) g/dL Albumin 4.4 3.2 L (3.5-5.1) g/dL Calcium panel 10/05/24 10/06/24 Range/Units 23:41 04:49 Calcium 9.4 7.9 L (8.4-10.2) mg/dL Albumin 4.4 3.2 L (3.5-5.1) g/dL Pituitary panel 10/05/24 10/06/24 Range/Units 23:41 04:49 Sodium 136 L 137 (137-145) mmol/L Potassium 3.9 3.6 (3.4-5.0) mmol/L Chloride 105 111 H (98-107) mmol/L Carbon Dioxide 17 L 19 L (22-30) mmol/L BUN 10 9 (7-17) mg/dL Creatinine 0.91 0.79 (0.7-1.0) mg/dL Glucose 110 93 (65-110) mg/dL Calcium 9.4 7.9 L (8.4-10.2) mg/dL Adrenal panel 10/05/24 10/06/24 Range/Units 23:41 04:49 Sodium 136 L 137 (137-145) mmol/L Potassium 3.9 3.6 (3.4-5.0) mmol/L Chloride 105 111 H (98-107) mmol/L Carbon Dioxide 17 L 19 L (22-30) mmol/L BUN 10 9 (7-17) mg/dL Creatinine 0.91 0.79 (0.7-1.0) mg/dL Glucose 110 93 (65-110) mg/dL Calcium 9.4 7.9 L (8.4-10.2) mg/dL Total Bilirubin 1.3 0.8 (0.2-1.3) mg/dL AST 36 29 (14-36) U/L ALT 23 15 (6-35) U/L Alkaline Phosphatase 75 53 (38-126) U/L Total Protein 7.9 6.1 L (6.3-8.2) g/dL Albumin 4.4 3.2 L (3.5-5.1) g/dL All other labs normal. Imaging Abdomen CT scan report/results: report reviewed and image reviewed CT scan - pelvis: report reviewed and image reviewed Abdominal ultrasound report/results: report reviewed
[2024-10-06 20:00] VITALS: PULSE 96; RESP 16; O2SAT 99
[2024-10-06] MEDS: MORPHINE SULFATE (*CRX) 2 MG/ML INJ IV PUSH (20:09)
[2024-10-06 20:39] VITALS: BP 128/66; PULSE 96; RESP 16; TEMP 37.1; O2SAT 99
[2024-10-07] MEDS: PIPERACILLIN/TAZOBACTAM SOD 3.375 GM in SODIUM CHLORIDE 0.9% IV 50 ML 100 ML IVPB (01:06)
[2024-10-07] MEDS: SODIUM CHLORIDE 0.9% IV 1,000 ML 125 ML IV CONT ×3 (01:13→20:23)
[2024-10-07 05:04] LABS: Hematocrit 35.3 % (37.0-47.0); Hemoglobin 11.6 g/dL (12.0-15.0); Immature Granulocyte Percent A 0.2 % (0-0.5); Lymphocytes Absolute Auto 1.57 K/mm3 (0.9-3.2); Mean Corpuscular HGB Conc 32.9 g/dl (32-36); Mean Corpuscular Hemoglobin 28.9 pg (26-34); Mean Corpuscular Volume 88.0 fl (80-100); Nucleated Red Blood Cells Absolute Auto 0.000 K/mm3 (0.0-0.012); Nucleated Red Blood Cells Perc 0.0 % (0.0-0.2); Platelet Count Result 157 k/mm3 (150-375); Red Blood Count 4.01 M/mm3 (4.2-5.4); White Blood Count 4.3 K/mm3 (4.5-10.0)
[2024-10-07 05:30] LABS: Alanine Aminotransferase 20 U/L (6-35); Albumin Level 3.5 g/dL (3.5-5.1); Alkaline Phosphatase 57 U/L (38-126); Anion Gap 9 mmol/L (4-12); Aspartate Amino Transferase 35 U/L (14-36); Bilirubin,Total 0.6 mg/dL (0.2-1.3); Blood Urea Nitrogen 7 mg/dL (7-17); Calcium 8.5 mg/dL (8.4-10.2); Carbon Dioxide 20 mmol/L (22-30); Chloride 110 mmol/L (98-107); Estimated CRCL calculation 105 ml/min; Estimated Glomerular Filt Rate > 60; Glucose 116 mg/dL (65-110); Potassium 3.5 mmol/L (3.4-5.0); Sodium 139 mmol/L (137-145); Total Protein 6.6 g/dL (6.3-8.2)
[2024-10-07 05:58] LABS: Anisocytosis 1+
[2024-10-07 05:59] LABS: Schistocytes None Seen
[2024-10-07 06:14] VITALS: BP 115/65; PULSE 76; RESP 16; TEMP 36.4; O2SAT 99
--- NOTE | 2024-10-07 06:57 | P.PNIM_ITS ---
Progress Note: A&P Assessment and Plan (1) Pyelonephritis: Code(s): N12 - Tubulo-interstitial nephritis, not specified as acute or chronic Status: Acute Assessment and Plan: * Abd/pelvic CT (10/05/24): Mild esophagitis/gastritis. Splenomegaly. Biliary sludge and likely gallstones, without inflammatory changes to suggest cholecystitis. Otherwise unremarkable CT abdomen and pelvis findings. * Endorsing fevers/chills at home, now presenting with Right CVA tenderness * UA: 2+ protein, 2+ ketones, 1+ blood, 2+ leukocyte esterase, 6-10 RBC, > 100 WBC * UC obtained on 10/05 * No previous microscopy * started on Zosyn for abnormal CT findings, will add on ceftriaxone * 10/07: Blood and urine culture still pending at this time (2) Nausea & vomiting: Code(s): R11.2 - Nausea with vomiting, unspecified Status: Acute Assessment and Plan: * Likely secondary to above * P.r.n. Zofran * Pepcid 20 mg IV q.12 hours (3) Abnormal abdominal CT scan: Code(s): R93.5 - Abnormal findings on diagnostic imaging of other abdominal regions, including retroperitoneum Status: Acute Assessment and Plan: * CT Abd/pelvis: Mild esophagitis/gastritis. Splenomegaly. Biliary sludge and likely gallstones, without inflammatory changes to suggest cholecystitis. * Abdomen ultrasound: Cholelithiasis. Common bile duct upper normal. * Monitor vital signs, I and O's, check stool output, neuro status and patient is a fall risk * Monitor serum electrolytes and CBC * Monitor lactic acid * General surgery consult, appreciate further recommendations * agree that pain is likely attributed to pyelonephritis affecting right kidney * discontinue 1 of to antibiotics * likely has underlying chronic cholecystitis * no surgical intervention at this time * will give her follow-up information for General surgery in the outpatient setting Subjective Date/time seen: 10/07/24 06:57 Interval history: 4-year-old female with a pmhx of Nexplanon insertion who presents to the hospital for right lower abdominal and right lower flank tenderness for the past 4 days. She was seen by an urgent care on Tuesday and prescribed Macrobid but the symptoms continued to worsen. 10/07/2024 Patient sitting comfortably in bed at time of exam. Endorses improvement in symptoms. Urine/Blood cultures still pending at this time. Surgery agrees with pyelonephritis being likely cause of patient's presenting symptoms, and that althought there is likely some underlying chronic cholecystitis for which the patient has been educated on, she is not currently a surgical candidate and surgery has signed off at this time and will have her follow up with their office in the outpt setting. Pt otherwise stable and has no complaints or concer ns at this time. Review of Systems Review of Systems: All systems reviewed & are unremarkable except as noted in HPI and below Exam Narrative: Gen - well appearing female in no acute respiratory distress who is nontoxic- appearing lying semi recumbent in bed HEENT - normocephalic. Atraumatic. Pupils equal round and reactive. Sclera clear and anicteric. Nares patent. Oropharynx was clear. Moist mucous membranes. Neck - neck was supple. No dominant adenopathy, thyromegaly or masses. 2+ carotid upstrokes without bruits. Chest - lungs are clear to auscultation bilaterally. No wheezes or crackles. CV - heart was regular rate and rhythm. S1-S2. No murmurs gallops or rubs. Abd - RLQ and RUQ tenderness to palpation. No guarding. + Right CVA tenderness, no left sided CVA tenderness. Abdomen was soft. Nondistended. Positive bowel sounds. No organomegaly or masses. Ext - no clubbing, cyanosis or edema. 2+ DP pulses bilaterally. Neuro - patient is alert and oriented x4. Strength is 5/5 in both upper and lower extremities. Speech is clear. Psych - normal mood and affect. Patient is pleasant and cooperative. Skin - warm and dry. No rashes noted. Objective Data Vital Signs Vital Signs: Vital Signs - 24 hr 10/06/24 14:00 10/06/24 20:00 10/06/24 20:39 Temperature 97.8 F 98.8 F Pulse Rate 95 96 96 Respiratory Rate 18 16 16 Blood Pressure 111/64 128/66 Pulse Oximetry 100 99 99 Oxygen Delivery Room Air 10/07/24 06:14 Temperature 97.6 F Pulse Rate 76 Respiratory Rate 16 Blood Pressure 115/65 Pulse Oximetry 99 Oxygen Delivery Intake/Output Intake/Output: Intake & Output 07/17/25 07/18/25 07/19/25 07/20/25 23:59 23:59 23:59 23:59 Intake Total 5990 550 Balance 5990 550 Meds/Results Medications: Active Medications Generic Name Dose Route Start Last Admin Trade Name Freq PRN Reason Stop Dose Admin Acetaminophen 650 mg 10/06/24 19:37 Acetaminophen 325 Mg Tablet PO Q6H PRN Mild Pain (1-3) or Fever Hydrocodone Bitart/Acetaminophen 1 tab 10/06/24 19:37 Hydrocodone/Acetaminophen (*Crx) 5-325 Mg Tablet PO Q6H PRN Pain Rated 4-6 Famotidine 20 mg 10/06/24 09:00 10/06/24 20:08 Famotidine 20 Mg/2 Ml Vial IV PUSH 20 mg Q12HR OLY Administration Sodium Chloride 1,000 mls @ 125 mls/hr 10/06/24 01:55 10/07/24 01:13 Normal Saline Iv IV CONT 125 mls/hr .Q8H OLY Administration Ceftriaxone Sodium 1 gm/ 50 mls @ 100 mls/hr 10/07/24 07:00 Sodium Chloride IVPB 10/11/24 08:00 Q24H OLY Morphine Sulfate 2 mg 10/06/24 19:37 10/06/24 20:09 Morphine Sulfate (*Crx) 2 Mg/Ml Inj IV PUSH 2 mg Q4H PRN Administration Pain Rated 7-10 Non-Formulary Medication 1 implant 10/06/24 14:00 10/06/24 14:09 Etonogestrel [Nexplanon] XX 11/05/24 13:59 Not Given DAILY OLY Ondansetron HCl 4 mg 10/06/24 01:53 Ondansetron Inj 4 Mg/2 Ml Vial IV PUSH Q4H PRN Nausea Radiology Results: ITS Impressions Abdomen Ultrasound 10/06/24 12:49 IMPRESSION: 1: Cholelithiasis. Common bile duct upper normal. Labs Labs: Laboratory Results - last 24 hr 10/07/24 04:21 WBC 4.3 L RBC 4.01 L Hgb 11.6 L Hct 35.3 L MCV 88.0 MCH 28.9 MCHC 32.9 RDW 12.2 Plt Count 157 MPV 9.6 Immature Gran % (Auto) 0.2 Neut % (Auto) 51.8 Lymph % (Auto) 36.8 [place] % (Auto) 10.1 H Eos % (Auto) 0.9 Baso % (Auto) 0.2 Lymph # (Auto) 1.57 [place] # (Auto) 0.4 Eos # (Auto) 0.0 Baso # (Auto) 0.0 Abs Immat Gran (auto) 0.01 Absolute Neuts (auto) 2.2 Absolute Nucleated RBC 0.000 Band Neutrophils % Not Reportable Nucleated RBC % 0.0 Platelet Estimate Adequate Anisocytosis 1+ Schistocytes None seen Sodium 139 Potassium 3.5 Chloride 110 H Carbon Dioxide 20 L Anion Gap 9 BUN 7 Creatinine 0.83 Estim Creat Clear Calc 105 Estimated GFR > 60 Glucose 116 H Calcium 8.5 Total Bilirubin 0.6 AST 35 ALT 20 Alkaline Phosphatase 57 Total Protein 6.6 Albumin 3.5 Quality VTE Prophylaxis VTE prophylaxis: mechanical ordered
[2024-10-07] MEDS: FAMOTIDINE 20 MG/2 ML VIAL IV PUSH ×2 (08:05→20:21)
[2024-10-07] MEDS: cefTRIAXone 1 GM in SODIUM CHLORIDE 0.9% IV 50 ML 100 ML IVPB (08:05)
[2024-10-07 13:11] VITALS: BP 111/67; PULSE 75; RESP 16; TEMP 36.5; O2SAT 100
[2024-10-07 19:48] VITALS: BP 120/75; PULSE 72; RESP 20; TEMP 36.9; O2SAT 100
[2024-10-08] MEDS: ACETAMINOPHEN 325 MG TABLET 650 MG PO (00:57)
[2024-10-08 03:31] VITALS: BP 117/67; PULSE 64; RESP 20; TEMP 36.4; O2SAT 100
[2024-10-08 05:23] LABS: Hematocrit 36.3 % (37.0-47.0); Hemoglobin 11.9 g/dL (12.0-15.0); Immature Granulocyte Percent A 0.2 % (0-0.5); Lymphocytes Absolute Auto 1.72 K/mm3 (0.9-3.2); Mean Corpuscular HGB Conc 32.8 g/dl (32-36); Mean Corpuscular Hemoglobin 28.7 pg (26-34); Mean Corpuscular Volume 87.7 fl (80-100); Nucleated Red Blood Cells Absolute Auto 0.040 K/mm3 (0.0-0.012); Nucleated Red Blood Cells Perc 1.0 % (0.0-0.2); Platelet Count Result 161 k/mm3 (150-375); Red Blood Count 4.14 M/mm3 (4.2-5.4); White Blood Count 4.1 K/mm3 (4.5-10.0)
[2024-10-08 05:59] LABS: Alanine Aminotransferase 29 U/L (6-35); Albumin Level 3.8 g/dL (3.5-5.1); Alkaline Phosphatase 57 U/L (38-126); Anion Gap 7 mmol/L (4-12); Aspartate Amino Transferase 40 U/L (14-36); Bilirubin,Total 0.5 mg/dL (0.2-1.3); Blood Urea Nitrogen 8 mg/dL (7-17); Calcium 8.8 mg/dL (8.4-10.2); Carbon Dioxide 23 mmol/L (22-30); Chloride 107 mmol/L (98-107); Estimated CRCL calculation 112 ml/min; Estimated Glomerular Filt Rate > 60; Glucose 95 mg/dL (65-110); Potassium 3.7 mmol/L (3.4-5.0); Sodium 137 mmol/L (137-145); Total Protein 7.2 g/dL (6.3-8.2)
--- NOTE | 2024-10-08 08:46 | P.DS_ITS ---
DS: Admitting Diagnosis Discharge Date 10/08/2024 Admitting Diagnosis Pyelonephritis DS: Discharge Diagnosis Discharge Diagnosis (1) Pyelonephritis: Code(s): N12 - Tubulo-interstitial nephritis, not specified as acute or chronic Status: Acute (2) Nausea & vomiting: Code(s): R11.2 - Nausea with vomiting, unspecified Status: Acute (3) Abnormal abdominal CT scan: Code(s): R93.5 - Abnormal findings on diagnostic imaging of other abdominal regions, including retroperitoneum Status: Acute (4) Mouth sore: Code(s): K13.79 - Other lesions of oral mucosa Status: Acute DS: Summary Hospital Course Reason for hospitalization: N/V, flank pain Hospital Course: Sunita Fan is a 24-year-old female with a pmhx of Nexplanon insertion who presents to the hospital for right lower abdominal and right lower flank tenderness for the past 4 days. She was seen by an urgent care on Tuesday and prescribed Macrobid but the symptoms continued to worsen. She was seen here on evening in the emergency department for similar issue, however at the time she was presenting with bilateral lower abdominal and bilateral flank pain. She was sent home with treatment for cystitis but continued to get worse until she came in Tuesday (10/05) evening for worsening abdominal and flank pain. Now she is presenting with abdominal pain more located in the right lower quadrant and right-sided flank pain. Describes it as sharp and constant without any alleviating or aggravating factors. She also endorses burning with urination as well as increased frequency. Also endorses nausea, emesis, subjective fevers and chills at home. She has been unable to keep down the antibiotics that she was discharged on due to the nausea and vomiting. Denies any chest pain, short ness of breath, vaginal discharge. Has Nexplanon, LKMP 03/12. Denies any pertinent medical history or medication use. Sexually active, denies alcohol or drug abuse. In ED: 114/72, 77 HR, 18RR, 94% on RA WBC 9.7, Hgb 13.6, Hct 39.4, Plt 180, gluose 110 Na 136, K 3.9, BUN 10, Cr 0.91, Lactic Acid 1.0, Ca 9.4, LFTs wnl, CRP 13.2 -> 8.7 Beta HCG, <2.39 Abd/Pelvis CT (10/05/2024): Mild esophagitis/gastritis. Splenomegaly. Biliary sludge and likely gallstones, without inflammatory changes to suggest cholecystitis. Otherwise unremarkable CT abdomen and pelvis findings. General surgery consulted regarding cholelithiasis with chronic cholecystitis. They agree that the patient likely experiencing periodically episodes or chronic cholecystitis. Will visit gallstones but these are likely noncontributory to present illness. Surgery advised that the patient follow-up in office in the outpatient setting but that there was no surgical intervention indicated at this time. Patient's symptoms improved throughout hospitalization. On 10/08, I discussed with Infectious Disease Lui's regarding discharge antibiotics. Plan to discharge patient on Augmentin. On 10/08, she also alerted staff that she started experience lateral 9th and and vesicles in the inside of her gums. This is a new symptom and patient denies any history of these vesicles. On exam, these appear to be physicals related to HSV. Will test for this condition and discharge patient on 1 day course of valacyclovir. Was likely angioedema or allergic reaction. No dysphagia or dyspnea. No swelling of the tongue or lesions. There does appear to be to vesicles in the inside her gums but otherwise no abnormalities. Patient was hemodynamically stable for discharge at this time. No fever or leukocytosis, symptoms have subsided completely. Plan for discharge home on Augmentin and acyclovir. Status at Discharge Functional status at discharge: independent ambulation Overall status at discharge: patient is back to baseline Time Spent with Patient Time attestation: Total time spent providing and/or coordinating discharge services:32 Exam Narrative: Gen - well appearing female in no acute respiratory distress who is nontoxic- appearing lying semi recumbent in bed HEENT - normocephalic. Atraumatic. Pupils equal round and reactive. Sclera clear and anicteric. Nares patent. Oropharynx was clear. Moist mucous membranes. Neck - neck was supple. No dominant adenopathy, thyromegaly or masses. 2+ carotid upstrokes without bruits. Chest - lungs are clear to auscultation bilaterally. No wheezes or crackles. CV - heart was regular rate and rhythm. S1-S2. No murmurs gallops or rubs. Abd - RLQ and RUQ tenderness to palpation. No guarding. + Right CVA tenderness, no left sided CVA tenderness. Abdomen was soft. Nondistended. Positive bowel sounds. No organomegaly or masses. Ext - no clubbing, cyanosis or edema. 2+ DP pulses bilaterally. Neuro - patient is alert and oriented x4. Strength is 5/5 in both upper and lower extremities. Speech is clear. Psych - normal mood and affect. Patient is pleasant and cooperative. Skin - warm and dry. No rashes noted. DS: Data Data Completed and Pending Labs on day of discharge: Labs from last 24 hours 10/08/24 05:01 WBC 4.1 L RBC 4.14 L Hgb 11.9 L Hct 36.3 L MCV 87.7 MCH 28.7 MCHC 32.8 RDW 12.2 Plt Count 161 MPV 9.9 Immature Gran % (Auto) 0.2 Neut % (Auto) 42.9 L Lymph % (Auto) 41.8 [place] % (Auto) 12.7 H Eos % (Auto) 1.7 Baso % (Auto) 0.7 Lymph # (Auto) 1.72 [place] # (Auto) 0.5 Eos # (Auto) 0.1 Baso # (Auto) 0.0 Abs Immat Gran (auto) 0.01 Absolute Neuts (auto) 1.8 Absolute Nucleated RBC 0.040 H Nucleated RBC % 1.0 H Sodium 137 Potassium 3.7 Chloride 107 Carbon Dioxide 23 Anion Gap 7 BUN 8 Creatinine 0.78 Estim Creat Clear Calc 112 Estimated GFR > 60 Glucose 95 Calcium 8.8 Total Bilirubin 0.5 AST 40 H ALT 29 Alkaline Phosphatase 57 Total Protein 7.2 Albumin 3.8 Discharge Plan Discharge Attending physician on discharge: Memo Oneil Consulting providers: Dusty Farris Discharging Clinician: Dusty Farris Anticipated Discharge Date/Time: 10/08/24 08:43 Patient Disposition: Home Activity: as tolerated Diet: regular Discharge Instructions: Discharge disposition: Home Take medications as prescribed. You will be prescribed Augment to be taken twice daily for 5 total days. You are also being tested for HSV and will be given a prescription of Valtrex to be taken for 2 total doses. Take one dose this morning and one dose tonight. Monitor blood pressures Take caution while standing, rising, or moving Change positions slowly taking a break between each position change If you standing feel dizzy sit back down and take a break Encouraged to continue with yearly vaccinations Return to the emergency department if he developed sudden shortness of breath, chest pain, nausea, vomiting, upset stomach or intractable diarrhea Return to the emergency department if you develop fever greater than 101.5 Follow-up with the primary care physician within 1-2 weeks Follow up with General Surgery in 2-3 weeks regarding your chronic cholecystitis. Call their office today to schedule an appointment. Thank you for choosing [facility] for your healthcare needs Patient Instructions: Antibiotic Form Patient Language: Romansh Stand Alone Forms: General Discharge Information Follow-up/Referrals: Barak Zheng MD [Physician] - Call for Appointment (Call Dr. Hadley office after you have recovered from your present illness. This is to discuss your gallstones and chronic cholecystitis.) Leisa So DO [Primary Care Provider] - Discharge Medications: New valacyclovir [Valtrex] 1 gram tablet 2,000 mg PO Q12H Qty: 2 0RF amoxicillin-pot clavulanate 875-125 mg tablet 1 tablet PO Q12H 5 Days Qty: 10 0RF Continued Nexplanon 68 mg implant 1 implant subdermal ONCE Rx Instructions: as a single dose Discontinued nitrofurantoin monohyd/m-cryst 100 mg capsule 100 mg PO Q12H Date of admission: 10/06/24 01:53 Primary Care Provider: Leisa So Admitting Provider: Laya Pope Attending physician on admission: Laya Pope Condition: Improved Quality VTE Prophylaxis VTE prophylaxis: mechanical ordered
== END 2024-10-08 10:51 | disposition home or self-care (01) ==
LOC: ANHED 10-06 02:04 → ANH2MED 10-06 04:50
PROVIDERS: Physician Assistant; Admitting Provider General Practice; Emergency Provider Registered Nurse; PCP Family Medicine; Visit Provider Family Medicine
DX: N12 Tubulo-interstitial nephritis, not specified as acute or chronic (principal); R11.2 Nausea with vomiting, unspecified; R93.5 Abnormal findings on diagnostic imaging of other abdominal regions, including retroperitoneum; K13.79 Other lesions of oral mucosa; E66.01 Morbid (severe) obesity due to excess calories; Z68.41 Body mass index [BMI] 40.0-44.9, adult; Z20.822 Contact with and (suspected) exposure to COVID-19; Z79.3 Long term (current) use of hormonal contraceptives
CPT/HCPCS: 36415; 76705; 80053; 80307; 81001; 83605; 83735; 84702; 85025; 86140; 87040; 87086; 87491; 87591; 87637; 87661; 96361; 96365; 96374; 96375; 96376; 99285; A9270; G0378; G0379; J0696; J2270; J2405; J2543; J7030